=== PATIENT | female | born 1950 | race Caucasian/White ===

== ENCOUNTER → 2017-11-20 | Outpatient (CLI) | payer OTHER ==
[~2017-11-20] MED LIST: ALBU3IS INH; ALBU90OI; ALBU90OI6 INH; ALBU90OI61 INH; ATEN50 PO; ATOR40TA PO; BECL80OI INH; BENZ100A PO; CHOL10002 PO; COLE1; CRESTOR 40MG PO; CYCL10 PO; FLUSAL5005; FURO20 PO; FURO40 PO; GLIM2 PO; HYDACE5 PO; HYDCHL25 PO; IBUP600 PO; IPRAIS; LOSA50 PO; LOSARTAN POTASS50 MG PO; METF500; OLME20-12. PO; OSCAL; OXYACE5T PO; PAIN RELIEVER500 MG PO; PENVK500 PO; POTCHL20ER PO; SITA100T2 PO; TIOT18 IH; Veetids 500500 MG PO; XARELTO15 MG PO; XARELTO20 MG PO
[2017-11-20 13:55] LABS: Hematocrit 39.1 % (33.0-51.0); Hemoglobin 12.5 g/dL (11.5-16.0)
[2017-11-20 14:42] LABS: Albumin, Blood 3.8 g/dL (3.4-5.0); Anion Gap 8 mmol/L (6-16); Blood Urea Nitrogen 25 mg/dL (8-24); Bun/Creatinine Ratio 23.1 (12.0-20.0); CO2, Blood 26 mmol/L (21-32); Chloride, Blood 106 mmol/L (98-108); Creatinine, Blood 1.08 mg/dL (0.40-1.00); Glomerular Filtration Rate 53 (60-); Glucose, Blood 137 mg/dL (70-99); Phosphorus, Blood 2.8 mg/dL (2.5-4.9); Sodium, Blood 140 mmol/L (136-145)
[2017-11-20 14:44] LABS: Percent Saturation 15.6 % (15.0-50.0)
[2017-11-20 16:29] LABS: Creatinine, Urine Random 94.3 mg/dL (27.00-270.00)
[2017-11-21 08:43] LABS: IgA 132 mg/dL (71-397); IgG 777 mg/dL (758-1612); IgM 43 mg/dL (40-230)
[2017-11-21 12:57] LABS: Albumin 3.4 g/dL (3.3-4.8); Albumin 52.1 % (45.0-80.0); Monoclonal Protein 0.2 g/dL; Monoclonal Protien % 2.9 %; Protein, Total 6.6 g/dL (6.1-7.8)
== END | disposition home or self-care (01) ==
LOC: OLS 11:20
PROVIDERS: Internal Medicine
DX: N18.2 Chronic kidney disease, stage 2 (mild) (principal); D63.1 Anemia in chronic kidney disease; E55.9 Vitamin D deficiency, unspecified; N25.81 Secondary hyperparathyroidism of renal origin
CPT/HCPCS: 36415; 80069; 82306; 82570; 82728; 82784; 83540; 83550; 83970; 84156; 84165; 85014; 85018; 86334

== ENCOUNTER 2018-02-13 03:20 | Emergency (ER) | payer OTHER ==
[~2018-02-13] VITALS: Ht 165.1 cm; Wt 108.9 kg
[~2018-02-13 03:20] MED LIST changes: -ALBU3IS INH; -BENZ100A PO; -CHOL10002 PO; -LOSA50 PO; -POTCHL20ER PO; -XARELTO15 MG PO
[2018-02-13 03:53] LABS: BASOPHILS ABSOLUTE AUTO 0.05 K/mm3 (0.00-0.23); BASOPHILS PERCENT AUTO 1 % (0-2); EOSINOPHILS ABSOLUTE AUTO 0.19 K/mm3 (0.00-0.68); EOSINOPHILS PERCENT AUTO 2 % (0-6); Hemoglobin 12.6 g/dL (11.5-16.0); IMMATURE GRAN ABSOLUTE AUTO 0.02 K/mm3 (0.00-0.10); IMMATURE GRAN PERCENT AUTO 0 % (0-1); LYMPHOCYTES ABSOLUTE AUTO 3.46 K/mm3 (0.84-5.20); LYMPHOCYTES PERCENT AUTO 43 % (21-46); MONOCYTES ABSOLUTE AUTO 0.44 K/mm3 (0.16-1.47); MONOCYTES PERCENT AUTO 5 % (4-13); Mean Corpuscular HGB 30.6 pg (26.0-34.0); Mean Corpuscular HGB Conc 32.3 g/dL (31.5-36.5); Mean Corpuscular Volume 95 fL (80-100); Mean Platelet Volume 10.6 fL (9.1-12.4); NEUTROPHILS ABSOLUTE AUTO 3.97 K/mm3 (1.96-9.15); NEUTROPHILS PERCENT AUTO 49 % (41-73); Platelet Count 196 K/mm3 (150-400); RDW Coefficient Variation 13.2 % (11.7-14.2); RDW Standard Deviation 45.8 fL (35.1-46.3); Red Blood Cell Count 4.12 M/mm3 (3.80-5.20); White Blood Cell Count 8.13 K/mm3 (4.00-11.30)
[2018-02-13 04:13] LABS: Alanine Aminotransfer (ALT/SGP 16 U/L (12-78); Albumin, Blood 3.4 g/dL (3.4-5.0); Alk Phos 85 U/L (50-136); Anion Gap 7 mmol/L (6-16); Aspartate Aminotrans (AST/SGOT 13 U/L (12-37); Bilirubin, Total 0.7 mg/dL (0.1-1.0); Blood Urea Nitrogen 17 mg/dL (8-24); CO2, Blood 28 mmol/L (21-32); Calcium, Blood 8.8 mg/dL (8.5-10.1); Chloride, Blood 110 mmol/L (98-108); Creatinine, Blood 0.89 mg/dL (0.40-1.00); Globulin, Blood 3.5 g/dL (2.2-4.0); Glomerular Filtration Rate >60 (60-); Glucose, Blood 126 mg/dL (70-99); Potassium, Blood 3.7 mmol/L (3.5-5.5); Sodium, Blood 145 mmol/L (136-145); Total Protein, Blood 6.9 g/dL (6.4-8.2); Troponin I <0.015 ng/mL (0.000-0.040)
[2018-02-13 06:13] LABS: Source, Urine Clean Catch
[2018-02-13 06:15] LABS: Bilirubin, Urine Neg (Neg); Blood, Urine Neg (Neg); Glucose Qualitative, Urine Neg (Neg); Ketones, Urine Neg (Neg); Leukocyte Esterase, Urine Neg (Neg); Nitrite, Urine Neg (Neg); Protein, Urine Neg (Neg); Urobilinogen, Urine NORM (Normal)
[2018-02-13 06:43] LABS: Appearance, Urine Clear (Clear); Color, Urine Yellow (P-Yellow)
== END 2018-02-13 10:00 | disposition home or self-care (01) ==
LOC: ER 03:20
PROVIDERS: Emergency Medicine
DX: R10.33 Periumbilical pain (principal); I25.2 Old myocardial infarction; E11.9 Type 2 diabetes mellitus without complications; F17.200 Nicotine dependence, unspecified, uncomplicated; Z88.8 Allergy status to other drugs, medicaments and biological substances; Z88.1 Allergy status to other antibiotic agents; Z88.5 Allergy status to narcotic agent; Z79.899 Other long term (current) drug therapy; Z86.711 Personal history of pulmonary embolism
CPT/HCPCS: 36415; 74176; 80053; 81003; 83690; 84484; 85025; 93005; 93010; 96374; 96375; 99284; J2405; J3010

== ENCOUNTER 2018-07-25 12:13 | Inpatient (IN) | payer OTHER ==
[~2018-07-25] VITALS: Ht 165.1 cm; Wt 99.0 kg
[~2018-07-25 12:13] MED LIST changes: -ALBU3IS INH; -BENZ100A PO; -CHOL10002 PO; -LOSA50 PO; -POTCHL20ER PO; -XARELTO15 MG PO
[2018-07-25] MEDS ORDERED: ALBU3IS INH (12:52)
[2018-07-25] MEDS ORDERED: ATOR40TA PO (12:52)
[2018-07-25] MEDS ORDERED: SITA100T2 PO (12:53)
[2018-07-25] MEDS ORDERED: HYDCHL25 PO (12:53)
[2018-07-25] MEDS ORDERED: FURO20 PO (12:53)
[2018-07-25] MEDS ORDERED: LOSA50 PO (12:53)
[2018-07-25] MEDS ORDERED: POTCHL20ER PO (12:54)
[2018-07-25] MEDS ORDERED: ALBU90OI61 INH (12:54)
[2018-07-25] MEDS ORDERED: XARELTO20 MG PO (12:55)
[2018-07-25] MEDS ORDERED: CHOL10002 PO (12:55)
[2018-07-26 03:43] LABS: BASOPHILS ABSOLUTE AUTO 0.01 K/mm3 (0.00-0.23); BASOPHILS PERCENT AUTO 0 % (0-2); EOSINOPHILS PERCENT AUTO 0 % (0-6); Hematocrit 34.4 % (33.0-51.0); Hemoglobin 11.2 g/dL (11.5-16.0); IMMATURE GRAN ABSOLUTE AUTO 0.03 K/mm3 (0.00-0.10); IMMATURE GRAN PERCENT AUTO 1 % (0-1); LYMPHOCYTES ABSOLUTE AUTO 0.97 K/mm3 (0.84-5.20); LYMPHOCYTES PERCENT AUTO 17 % (21-46); MONOCYTES ABSOLUTE AUTO 0.15 K/mm3 (0.16-1.47); MONOCYTES PERCENT AUTO 3 % (4-13); Mean Corpuscular HGB 31.5 pg (26.0-34.0); Mean Corpuscular HGB Conc 32.6 g/dL (31.5-36.5); Mean Platelet Volume 11.2 fL (9.1-12.4); NEUTROPHILS ABSOLUTE AUTO 4.54 K/mm3 (1.96-9.15); NEUTROPHILS PERCENT AUTO 80 % (41-73); Platelet Count 113 K/mm3 (150-400); RDW Coefficient Variation 12.5 % (11.7-14.2); RDW Standard Deviation 44.6 fL (35.1-46.3); Red Blood Cell Count 3.55 M/mm3 (3.80-5.20)
[2018-07-26 03:45] LABS: Mean Corpuscular Volume 97 fL (80-100)
[2018-07-26 04:04] LABS: Anion Gap 9 mmol/L (6-16); Blood Urea Nitrogen 18 mg/dL (8-24); Bun/Creatinine Ratio 18.9 (12.0-20.0); CO2, Blood 23 mmol/L (21-32); CPK Creatine Kinase 37 U/L (26-193); Calcium, Blood 8.1 mg/dL (8.5-10.1); Chloride, Blood 110 mmol/L (98-108); Creatine Kinase MB 1.1 ng/mL (0.0-3.6); Creatinine, Blood 0.95 mg/dL (0.40-1.00); Glomerular Filtration Rate >60 (60-); Glucose, Blood 205 mg/dL (70-99); Potassium, Blood 4.1 mmol/L (3.5-5.5); Sodium, Blood 142 mmol/L (136-145); Troponin I <0.015 ng/mL (0.000-0.040)
[2018-07-26 08:35] LABS: CPK Creatine Kinase 38 U/L (26-193); Troponin I <0.015 ng/mL (0.000-0.040)
[2018-07-27 04:10] LABS: BASOPHILS ABSOLUTE AUTO 0.04 K/mm3 (0.00-0.23); BASOPHILS PERCENT AUTO 0 % (0-2); EOSINOPHILS ABSOLUTE AUTO 0.09 K/mm3 (0.00-0.68); EOSINOPHILS PERCENT AUTO 1 % (0-6); Hematocrit 33.4 % (33.0-51.0); Hemoglobin 10.5 g/dL (11.5-16.0); IMMATURE GRAN ABSOLUTE AUTO 0.04 K/mm3 (0.00-0.10); IMMATURE GRAN PERCENT AUTO 0 % (0-1); LYMPHOCYTES ABSOLUTE AUTO 3.26 K/mm3 (0.84-5.20); LYMPHOCYTES PERCENT AUTO 35 % (21-46); MONOCYTES ABSOLUTE AUTO 0.38 K/mm3 (0.16-1.47); MONOCYTES PERCENT AUTO 4 % (4-13); Mean Corpuscular HGB 31.5 pg (26.0-34.0); Mean Corpuscular HGB Conc 31.4 g/dL (31.5-36.5); Mean Platelet Volume 11.1 fL (9.1-12.4); NEUTROPHILS PERCENT AUTO 59 % (41-73); Platelet Count 115 K/mm3 (150-400); RDW Coefficient Variation 12.9 % (11.7-14.2); RDW Standard Deviation 47.4 fL (35.1-46.3); Red Blood Cell Count 3.33 M/mm3 (3.80-5.20); White Blood Cell Count 9.31 K/mm3 (4.00-11.30)
[2018-07-27 04:11] LABS: Mean Corpuscular Volume 100 fL (80-100)
[2018-07-27 04:27] LABS: Albumin, Blood 2.8 g/dL (3.4-5.0); Anion Gap 8 mmol/L (6-16); Blood Urea Nitrogen 23 mg/dL (8-24); Bun/Creatinine Ratio 18.5 (12.0-20.0); CO2, Blood 24 mmol/L (21-32); Calcium, Blood 8.2 mg/dL (8.5-10.1); Chloride, Blood 111 mmol/L (98-108); Creatinine, Blood 1.24 mg/dL (0.40-1.00); Glomerular Filtration Rate 45 (60-); Glucose, Blood 125 mg/dL (70-99); Phosphorus, Blood 4.4 mg/dL (2.5-4.9); Potassium, Blood 4.1 mmol/L (3.5-5.5); Sodium, Blood 143 mmol/L (136-145)
[2018-07-28 04:46] LABS: BASOPHILS ABSOLUTE AUTO 0.02 K/mm3 (0.00-0.23); BASOPHILS PERCENT AUTO 0 % (0-2); EOSINOPHILS ABSOLUTE AUTO 0.18 K/mm3 (0.00-0.68); EOSINOPHILS PERCENT AUTO 2 % (0-6); Hematocrit 34.8 % (33.0-51.0); IMMATURE GRAN ABSOLUTE AUTO 0.04 K/mm3 (0.00-0.10); IMMATURE GRAN PERCENT AUTO 1 % (0-1); LYMPHOCYTES ABSOLUTE AUTO 1.89 K/mm3 (0.84-5.20); LYMPHOCYTES PERCENT AUTO 25 % (21-46); MONOCYTES ABSOLUTE AUTO 0.48 K/mm3 (0.16-1.47); MONOCYTES PERCENT AUTO 6 % (4-13); Mean Corpuscular HGB 31.2 pg (26.0-34.0); Mean Corpuscular HGB Conc 31.6 g/dL (31.5-36.5); Mean Corpuscular Volume 99 fL (80-100); Mean Platelet Volume 10.8 fL (9.1-12.4); NEUTROPHILS PERCENT AUTO 66 % (41-73); Platelet Count 114 K/mm3 (150-400); RDW Coefficient Variation 12.8 % (11.7-14.2); Red Blood Cell Count 3.53 M/mm3 (3.80-5.20); White Blood Cell Count 7.61 K/mm3 (4.00-11.30)
[2018-07-28 05:04] LABS: Albumin, Blood 2.7 g/dL (3.4-5.0); Albumin/Globulin Ratio 0.9 (0.8-1.8); Bilirubin, Total 0.4 mg/dL (0.1-1.0); Bun/Creatinine Ratio 19.1 (12.0-20.0); Calcium, Blood 8.7 mg/dL (8.5-10.1); Creatinine, Blood 1.1 mg/dL (0.40-1.00); Globulin, Blood 2.9 g/dL (2.2-4.0); Potassium, Blood 4.3 mmol/L (3.5-5.5); Total Protein, Blood 5.6 g/dL (6.4-8.2)
[2018-07-29] MEDS ORDERED: BENZ100A PO (15:14)
[2018-07-29] MEDS ORDERED: XARELTO15 MG PO (15:15)
== END 2018-07-29 15:59 | disposition home or self-care (01) | DRG 175 ==
LOC: ER 12:13 → PCU 15:13 → MEDS 15:13 → PCU 15:53 → MEDS 07-27 13:59
PROVIDERS: Family Medicine; Internal Medicine
PROC: 3E0234Z Introduction of Serum, Toxoid and Vaccine into Muscle, Percutaneous Approach (ICD-10-PCS; principal; 2018-07-25)
DX: I26.99 Other pulmonary embolism without acute cor pulmonale (principal); J96.01 Acute respiratory failure with hypoxia; I50.31 Acute diastolic (congestive) heart failure; J44.1 Chronic obstructive pulmonary disease with (acute) exacerbation; I13.0 Hypertensive heart and chronic kidney disease with heart failure and stage 1 through stage 4 chronic kidney disease, or unspecified chronic kidney disease; I27.20 Pulmonary hypertension, unspecified; E11.22 Type 2 diabetes mellitus with diabetic chronic kidney disease; N18.3 Chronic kidney disease, stage 3 (moderate); E11.21 Type 2 diabetes mellitus with diabetic nephropathy; G47.33 Obstructive sleep apnea (adult) (pediatric); I48.0 Paroxysmal atrial fibrillation; E78.5 Hyperlipidemia, unspecified; M19.90 Unspecified osteoarthritis, unspecified site; F17.210 Nicotine dependence, cigarettes, uncomplicated; Z86.718 Personal history of other venous thrombosis and embolism; Z88.1 Allergy status to other antibiotic agents; Z88.5 Allergy status to narcotic agent; Z79.899 Other long term (current) drug therapy; I25.2 Old myocardial infarction; Z23 Encounter for immunization
CPT/HCPCS: 36415; 71046; 71260; 80048; 80053; 80069; 82550; 82553; 82947; 83880; 84484; 85025; 85730; 87070; 87205; 90686; 93005; 93010; 93306; 94640; 94667; 94760; 94761; 96361; 96374; 97161; 97530; 99285-25; 99406; A9270; G8978; G8979; G8980; J0696; J1644; J2405; J2930; J7030; J7050; Q9967

== ENCOUNTER → 2018-07-25 | Outpatient (CLI) | payer OTHER ==
[~2018-07-25] MED LIST changes: +ALBU3IS INH; +BENZ100A PO; +CHOL10002 PO; +LOSA50 PO; +POTCHL20ER PO; +XARELTO15 MG PO
[2018-07-25 11:35] LABS: BASOPHILS ABSOLUTE AUTO 0.04 K/mm3 (0.00-0.23); BASOPHILS PERCENT AUTO 1 % (0-2); EOSINOPHILS ABSOLUTE AUTO 0.05 K/mm3 (0.00-0.68); EOSINOPHILS PERCENT AUTO 1 % (0-6); Hematocrit 36.5 % (33.0-51.0); Hemoglobin 12.2 g/dL (11.5-16.0); IMMATURE GRAN ABSOLUTE AUTO 0.04 K/mm3 (0.00-0.10); IMMATURE GRAN PERCENT AUTO 1 % (0-1); LYMPHOCYTES ABSOLUTE AUTO 1.59 K/mm3 (0.84-5.20); LYMPHOCYTES PERCENT AUTO 20 % (21-46); MONOCYTES ABSOLUTE AUTO 0.35 K/mm3 (0.16-1.47); MONOCYTES PERCENT AUTO 4 % (4-13); Mean Corpuscular HGB 31.5 pg (26.0-34.0); Mean Corpuscular HGB Conc 33.4 g/dL (31.5-36.5); Mean Platelet Volume 10.9 fL (9.1-12.4); NEUTROPHILS ABSOLUTE AUTO 6.04 K/mm3 (1.96-9.15); NEUTROPHILS PERCENT AUTO 75 % (41-73); Platelet Count 125 K/mm3 (150-400); RDW Coefficient Variation 12.9 % (11.7-14.2); RDW Standard Deviation 44.2 fL (35.1-46.3); Red Blood Cell Count 3.87 M/mm3 (3.80-5.20); White Blood Cell Count 8.11 K/mm3 (4.00-11.30)
[2018-07-25 11:38] LABS: Mean Corpuscular Volume 94 fL (80-100)
[2018-07-25 11:40] LABS: Bun/Creatinine Ratio 13.9 (12.0-20.0); Calcium, Blood 9.1 mg/dL (8.5-10.1); Creatinine, Blood 1.22 mg/dL (0.40-1.00)
[2018-07-25 12:28] LABS: International Normalized Ratio 1.14; Prothrombin Time Results 11.7 Sec (9.7-11.5)
== END ==
LOC: LAB SHORT 11:25 → LAB EV 11:25
PROVIDERS: Emergency Medicine
DX: R07.9 Chest pain, unspecified (principal)
CPT/HCPCS: 80048; 85025; 85379; 85610; 85730

== ENCOUNTER 2019-02-16 10:55 | Day surgery (SDC) | payer OTHER ==
[~2019-02-16 10:55] MED LIST changes: +ALBU3IS INH; +BENZ100A PO; +CHOL10002 PO; +LOSA50 PO; +POTCHL20ER PO; +XARELTO15 MG PO
[2019-02-16 12:37] LABS: Performing Lab VERACYTE; Test Name FNA
== END 2019-02-16 22:40 | disposition home or self-care (01) ==
LOC: US 10:55
PROVIDERS: Nurse Practitioner Family
DX: E04.1 Nontoxic single thyroid nodule (principal)
CPT/HCPCS: 10005

== ENCOUNTER → 2020-01-13 | Outpatient (CLI) | payer OTHER ==
[2020-01-14 00:14] LABS: Campylobacter Sp Not Detected (NOT DETECT)
[2020-01-14 00:15] LABS: Adenovirus F 40/41 Not Detected (NOT DETECT); Astrovirus Not Detected (NOT DETECT); Cryptosporidium Not Detected (NOT DETECT); Cyclospora Cayetanensis Not Detected (NOT DETECT); E. Coli O157 Not Detected (NOT DETECT); Entamoeba Histolytica Not Detected (NOT DETECT); Enteroaggregative E. coli-EAEC Not Detected (NOT DETECT); Enteropathogenic E. coli-EPEC Not Detected (NOT DETECT); Enterotoxigenic E. coli-ETEC Not Detected (NOT DETECT); Giardia Lamblia Not Detected (NOT DETECT); Norovirus GI/GII Not Detected (NOT DETECT); Plesiomonas Shigelloides Not Detected (NOT DETECT); Rotavirus A Not Detected (NOT DETECT); Salmonella Sp Not Detected (NOT DETECT); Sapovirus Not Detected (NOT DETECT); Shiga Toxin-prod E. coli-STEC Not Detected (NOT DETECT); Shigella/Enteroin E. coli-EIEC Not Detected (NOT DETECT); Vibrio Cholerae Not Detected (NOT DETECT); Vibrio Sp Not Detected (NOT DETECT); Yersinia Enterocolitica Not Detected (NOT DETECT)
== END | disposition home or self-care (01) ==
LOC: LAB EV 09:33
PROVIDERS: Nurse Practitioner Family
DX: K52.9 Noninfective gastroenteritis and colitis, unspecified (principal)
CPT/HCPCS: 0097U; 87324

== ENCOUNTER 2020-02-21 12:01 | Inpatient (IN) | payer OTHER ==
[~2020-02-21] VITALS: Ht 165.1 cm; Wt 113.4 kg
[~2020-02-21 12:01] MED LIST changes: -CHOL10002 PO; -LOSA50 PO; -POTCHL20ER PO; -XARELTO15 MG PO
[2020-02-21 13:01] LABS: BASOPHILS ABSOLUTE AUTO 0.04 K/mm3 (0.00-0.23); BASOPHILS PERCENT AUTO 0 % (0-2); EOSINOPHILS PERCENT AUTO 0 % (0-6); Hematocrit 34.2 % (33.0-51.0); Hemoglobin 11.3 g/dL (11.5-16.0); IMMATURE GRAN ABSOLUTE AUTO 0.08 K/mm3 (0.00-0.10); IMMATURE GRAN PERCENT AUTO 1 % (0-1); LYMPHOCYTES ABSOLUTE AUTO 0.71 K/mm3 (0.84-5.20); LYMPHOCYTES PERCENT AUTO 6 % (21-46); MONOCYTES ABSOLUTE AUTO 0.84 K/mm3 (0.16-1.47); MONOCYTES PERCENT AUTO 7 % (4-13); Mean Corpuscular HGB 30.6 pg (26.0-34.0); Mean Corpuscular Volume 93 fL (80-100); Mean Platelet Volume 12.1 fL (9.1-12.4); NEUTROPHILS ABSOLUTE AUTO 10.47 K/mm3 (1.96-9.15); NEUTROPHILS PERCENT AUTO 86 % (41-73); Platelet Count 114 K/mm3 (150-400); RDW Coefficient Variation 13.2 % (11.7-14.2); Red Blood Cell Count 3.69 M/mm3 (3.80-5.20); White Blood Cell Count 12.14 K/mm3 (4.00-11.30)
[2020-02-21 13:19] LABS: Albumin, Blood 2.8 g/dL (3.4-5.0); Albumin/Globulin Ratio 0.8 (0.8-1.8); Bilirubin, Total 2.3 mg/dL (0.1-1.0); Bun/Creatinine Ratio 24.7 (12.0-20.0); Calcium, Blood 8.4 mg/dL (8.5-10.1); Creatinine, Blood 1.82 mg/dL (0.40-1.00); Globulin, Blood 3.4 g/dL (2.2-4.0); Total Protein, Blood 6.2 g/dL (6.4-8.2); Troponin I 0.243 ng/mL (0.000-0.040)
[2020-02-21] MEDS ORDERED: SITA100T2 PO (14:36)
[2020-02-21] MEDS ORDERED: LOSARTAN POTAS100 M1 PO (14:37)
[2020-02-21] MEDS ORDERED: VITAMIN D-32000 UNIT PO (14:37)
[2020-02-21] MEDS ORDERED: ALBU90OI INH (14:38)
[2020-02-21] MEDS ORDERED: FURO20 PO (14:39)
[2020-02-21] MEDS ORDERED: TOPROL XL25 MG PO (14:40)
[2020-02-21] MEDS ORDERED: XARELTO20 MG PO (14:40)
[2020-02-21] MEDS ORDERED: POTCHL20ER PO (14:41)
[2020-02-21] MEDS ORDERED: HYDCHL25 PO (14:41)
[2020-02-21] MEDS ORDERED: ATOR40TA PO (14:41)
--- NOTE | 2020-02-21 18:23 | NUR ---
PT ADMITTED/SHIFT SUMMARY PT ADMITTED AT 1645. PT IN STABLE CONDITION. VSS. BP LOW WITH SBP IN THE UPPER 90S. PT GIVEN 500CC BOLUS ORDERED. NS INFUSION STARTED. PT ORIENTED TO ROOM. CALL LIGHT IN REACH. PT STATES A LITTLE DISCOMFORT IN HER R CHEST AREA. PT STATES IT IS BETTER THAN EARLIER HOWEVER. NO CHANGES IN ADMISSION ASSESSMENT AT THIS TIME. WILL CONTINUE TO MONITOR.
[2020-02-21 22:25] LABS: Source, Urine Clean Catch
--- NOTE | 2020-02-21 22:26 | NUR ---
URINE SAMPLE COLLECTED AND SENT TO LAB.
[2020-02-21 22:27] LABS: Appearance, Urine Turbid (Clear); Blood, Urine 5+ (Neg); Color, Urine Amber (P-Yellow); Glucose Qualitative, Urine Neg (Neg); Ketones, Urine 1+ (Neg); Leukocyte Esterase, Urine 3+ (Neg); Nitrite, Urine Neg (Neg); Protein, Urine 3+ (Neg); Urobilinogen, Urine 2+ (Normal)
[2020-02-21 22:28] LABS: Bilirubin, Urine 1+ (Neg)
[2020-02-21 22:35] LABS: Bacteria Many /hpf; Red Blood Cells, Urine 0-2 /hpf (0-2); Squamous Epithelial Cells Few /hpf (Few); White Blood Cells, Urine TNTC /hpf (0-5)
[2020-02-22 01:18] LABS: BASOPHILS ABSOLUTE AUTO 0.03 K/mm3 (0.00-0.23); BASOPHILS PERCENT AUTO 0 % (0-2); EOSINOPHILS ABSOLUTE AUTO 0.04 K/mm3 (0.00-0.68); EOSINOPHILS PERCENT AUTO 0 % (0-6); Hematocrit 32.3 % (33.0-51.0); IMMATURE GRAN ABSOLUTE AUTO 0.07 K/mm3 (0.00-0.10); IMMATURE GRAN PERCENT AUTO 1 % (0-1); LYMPHOCYTES ABSOLUTE AUTO 1.01 K/mm3 (0.84-5.20); LYMPHOCYTES PERCENT AUTO 10 % (21-46); MONOCYTES PERCENT AUTO 10 % (4-13); Mean Corpuscular HGB 29.9 pg (26.0-34.0); Mean Corpuscular Volume 96 fL (80-100); Mean Platelet Volume 12.4 fL (9.1-12.4); NEUTROPHILS ABSOLUTE AUTO 7.88 K/mm3 (1.96-9.15); NEUTROPHILS PERCENT AUTO 79 % (41-73); Platelet Count 114 K/mm3 (150-400); RDW Coefficient Variation 13.3 % (11.7-14.2); RDW Standard Deviation 48.1 fL (35.1-46.3); Red Blood Cell Count 3.35 M/mm3 (3.80-5.20); White Blood Cell Count 10.03 K/mm3 (4.00-11.30)
[2020-02-22 01:35] LABS: Bun/Creatinine Ratio 18.6 (12.0-20.0); Calcium, Blood 7.8 mg/dL (8.5-10.1); Creatinine, Blood 2.8 mg/dL (0.40-1.00); Potassium, Blood 4.1 mmol/L (3.5-5.5)
--- NOTE | 2020-02-22 06:09 | NUR ---
INFECTION PREVENTION JUST CALLED AND SAID THAT THE PATIENT ONLY HAS A HISTORY OF C-DIFF AND IS NOT CURRENTLY HAVING LOOSE STOOLS SHE CAN BE REMOVED FROM HER ISOLATION PRECAUTIONS.
--- NOTE | 2020-02-22 07:19 | NUR ---
SHIFT SUMMARY PATIENT ALERT AND ORIENTED. IV PATENT AND INFUSING WITH NORMAL SALINE. TELE IN PLACE. BED IN LOWEST POSITION WITH WHEELS LOCKED. CALL LIGHT AND BELONGINGS WTIHIN REACH. REPORT GIVEN TO ONCOMING RN.
--- NOTE | 2020-02-22 08:13 | NUR ---
HOLD BP MEDS. SPOKE WITH DR. KAUR ABOUT PT BP OF 100/53. DR. KAUR ORDERED TO HOLD METOPERLOL AND LOSARTAN FOR SBP LESS THAN 105.
--- NOTE | 2020-02-22 12:55 | NUR ---
Upon receiving an admit referral for spiritual care, I visit patient. Patient is lying in bed and alert. Patient tells me about the fall that led to her hospitalization, about her medical history and her current plan of care. Patient shares about her family history, her present living arrangements (daughter and granddaughter live with her) and about her spiritual journey (grew up [employer], became Sabianist with second and recently has been attending [facility]). Patient tells me about her spiritual wilderness due to seperation from her methodist family. I listen empathically, naormalize patient's experience and provide pastoral counseling program leader, companionship and prayer. Patient responds well and shows signs of restored melecio. I will continue to remain available to patient and family.
--- NOTE | 2020-02-22 15:42 | NUR ---
HYPOTENSION /PT AFTER NOON BP LOW WITH A L ARM OF 94/48 AND R ARM OF 85/37. DR. KAUR CALLED & NOTIFIED. 1L NS BOLUS ORDERED.
--- NOTE | 2020-02-22 17:19 | NUR ---
SHIFT SUMMARY PT BP INCREASED TO 124/57 AFTER 1L FLUID BOLUS. PT VOIDING WELL AT THIS TIME. OTHER VITALS STABLE. PT HAD X-RAY OF RIBS COMPLETED THIS SHIFT. EVALUATED BY PT & OT THIS SHIFT. NO OTHER ACUTE CHANGES IN ASSESSMENT AT THIS TIME. WILL CONTINUE TO MONITOR UNTIL TURNOVER IS COMPLETE.
--- NOTE | 2020-02-23 02:48 | NUR ---
FUR SORTER SUMMARY PT A/O X4. SLEPT MOST OF THE NIGHT. PLEASANT AND COOPERATIVE. PT STATES PAIN TOLERABLE AND DENIES THE NEEDS OF PAIN MEDS. VITALS STABLE. COOPERATIVE WITH CARE. NO ACUTE CHANGES.
[2020-02-23 05:12] LABS: Bun/Creatinine Ratio 25.4 (12.0-20.0); Calcium, Blood 8.2 mg/dL (8.5-10.1); Creatinine, Blood 2.56 mg/dL (0.40-1.00)
--- NOTE | 2020-02-23 17:39 | NUR ---
SHIFT SUMMARY PT A&O X4. PT REPORTED PAIN OF 6/10 ON HER RIGHT RIBS WHICH IS A TOLERABLE LEVEL FOR HER. PILLOW PROVIDED FOR SPLINTING AND REPOSITIONING HELPS WITH PAIN ALSO. PHYSICAL THERAPY WORKED WITH PT TODAY AND SHE WAS ABLE TO WALK TO BATHROOM WITH WALKER. VSS. WILL CONTINUE TO MONITOR PT UNTIL GIVING REPORT TO NIGHT RN.
[2020-02-24 05:17] LABS: Bun/Creatinine Ratio 30.9 (12.0-20.0); Calcium, Blood 8.6 mg/dL (8.5-10.1); Creatinine, Blood 1.49 mg/dL (0.40-1.00); Potassium, Blood 3.9 mmol/L (3.5-5.5)
--- NOTE | 2020-02-24 06:04 | NUR ---
SHIFT SUMMARY PT IS A 69 Y/O FEMALE, ADMITTED FOR INCREASED WEAKNESS AND UTI. SHE IS A&O X 3, AND A 1PA TO THE BATHROOM. SHE WAS MEDICATED ONCE FOR R SIDE PAIN WITH PRN OXYCODONE. NO COMPLAINTS OF NAUSEA OR SOB. VITAL SIGNS STABLE. TELE SHOWED AFIB IN THE 70S. PT RECEIVED NS @ 50 ML/HR. NO OTHER ACUTE CHANGES IN PT CONDITION NOTED DURING THE NIGHT. WILL CONTINUE TO MONITOR AND TREAT PER EMAR UNTIL HAND OFF TO DAY SHIFT RN.
[2020-02-24] MEDS ORDERED: LIDOCAINE1 EAC1 TOP (16:04)
[2020-02-24] MEDS ORDERED: Tetracycline H500 MG PO (16:20)
[2020-02-24] MEDS ORDERED: TRAM50 PO (16:20)
--- NOTE | 2020-02-24 18:26 | NUR ---
D/C NOTE: EDUCATION AND DISCHARGE INSTRUCTIONS GONE OVER WITH PATIENT. PATIENT DENIES ANY FURTHER QUESTIONS. IV DC'D INTACT. HARD COPY OF PRESCRIPTION GIVEN TO PT IN DISCHARGE PACKET. PATIENT CONTACTED DAUGHTER FOR RIDE HOME. AWAITING ARRIVAL OF DAUGHTER. PT TO BE TAKEN TO DAUGHTER VIA W/C.
--- NOTE | 2020-02-24 18:45 | NUR ---
DISCHARGED AT 1845.
[2020-02-25] MEDS ORDERED: DOXY100 PO (09:39)
--- NOTE | 2020-02-25 09:41 | NUR ---
SHE DISCHARGED HOME YESTERDAY BUT CALLED AND SAID THE TETRACYCLINE WAS UNABLE TO BE FILLED DUE TO A RECALL. I SPOKE THIS MORNING WITH DR. NORIEGA. SHE ORDERED DOXYCYCLINE INSTEAD. I CALLED THAT INTO [facility] AND THEN CALLED ENDER AT HOME ABOUT THE CHANGE. SHE WILL PICK IT UP TODAY.
== END 2020-02-24 18:48 | disposition home health service (06) | DRG 641 ==
LOC: ER 12:01 → MEDS 15:29
PROVIDERS: Emergency Medicine; ADMIT Student in an Organized Health Care Education/Training Program
DX: E86.0 Dehydration (principal); N17.9 Acute kidney failure, unspecified; N39.0 Urinary tract infection, site not specified; I13.0 Hypertensive heart and chronic kidney disease with heart failure and stage 1 through stage 4 chronic kidney disease, or unspecified chronic kidney disease; I50.32 Chronic diastolic (congestive) heart failure; R79.89 Other specified abnormal findings of blood chemistry; R07.89 Other chest pain; R29.6 Repeated falls; B96.20 Unspecified Escherichia coli [E. coli] as the cause of diseases classified elsewhere; M25.551 Pain in right hip; J43.9 Emphysema, unspecified; G47.33 Obstructive sleep apnea (adult) (pediatric); E78.5 Hyperlipidemia, unspecified; M19.90 Unspecified osteoarthritis, unspecified site; I25.2 Old myocardial infarction; I48.91 Unspecified atrial fibrillation; E11.42 Type 2 diabetes mellitus with diabetic polyneuropathy; E11.22 Type 2 diabetes mellitus with diabetic chronic kidney disease; N18.3 Chronic kidney disease, stage 3 (moderate); M54.9 Dorsalgia, unspecified; G89.29 Other chronic pain; N39.3 Stress incontinence (female) (male); Z87.891 Personal history of nicotine dependence; Z88.8 Allergy status to other drugs, medicaments and biological substances; Z88.1 Allergy status to other antibiotic agents; Z88.5 Allergy status to narcotic agent; Z79.01 Long term (current) use of anticoagulants; Z79.84 Long term (current) use of oral hypoglycemic drugs; Z79.899 Other long term (current) drug therapy; Z86.718 Personal history of other venous thrombosis and embolism; Z86.711 Personal history of pulmonary embolism
CPT/HCPCS: 36415; 71046; 71101; 80048; 80053; 81001; 82947; 84484; 85025; 87077; 87086; 87186; 93005; 93010; 94760; 96361; 96374; 96375; 96376; 97110; 97116; 97163; 97166; 97530; 97535; 99285-25; A9270; A9270-GY; G0378; J0744; J2185; J2405; J3010; J7030; J7040

== ENCOUNTER 2022-12-23 15:49 | Inpatient (IN) | payer OTHER ==
[~2022-12-23] VITALS: Ht 162.6 cm; Wt 128.3 kg
[~2022-12-23 15:49] MED LIST changes: +ALBU90OI INH; +DOXY100 PO; +LIDOCAINE1 EAC1 TOP; +LOSARTAN POTAS100 M1 PO; +POTCHL20ER PO; +THERA-D2000 UNIT PO; +TOPROL XL25 MG PO; +TRAM50 PO; +Tetracycline H500 MG PO
[2022-12-23 16:35] LABS: BASOPHILS ABSOLUTE AUTO 0.05 K/mm3 (0.00-0.23); BASOPHILS PERCENT AUTO 1 % (0-2); EOSINOPHILS ABSOLUTE AUTO 0.15 K/mm3 (0.00-0.68); EOSINOPHILS PERCENT AUTO 2 % (0-6); Hematocrit 41.1 % (33.0-51.0); Hemoglobin 13.4 g/dL (11.5-16.0); IMMATURE GRAN ABSOLUTE AUTO 0.03 K/mm3 (0.00-0.10); IMMATURE GRAN PERCENT AUTO 1 % (0-1); LYMPHOCYTES ABSOLUTE AUTO 1.41 K/mm3 (0.84-5.20); LYMPHOCYTES PERCENT AUTO 22 % (21-46); MONOCYTES ABSOLUTE AUTO 0.43 K/mm3 (0.16-1.47); MONOCYTES PERCENT AUTO 7 % (4-13); Mean Corpuscular HGB 29.8 pg (26.0-34.0); Mean Corpuscular HGB Conc 32.6 g/dL (31.5-36.5); Mean Corpuscular Volume 92 fL (80-100); Mean Platelet Volume 12.4 fL (9.1-12.4); NEUTROPHILS ABSOLUTE AUTO 4.43 K/mm3 (1.96-9.15); NEUTROPHILS PERCENT AUTO 68 % (41-73); Platelet Count 146 K/mm3 (150-400); RDW Coefficient Variation 13.2 % (11.7-14.2); RDW Standard Deviation 44.3 fL (35.1-46.3); Red Blood Cell Count 4.49 M/mm3 (3.80-5.20)
[2022-12-23 16:48] LABS: Albumin, Blood 3.5 g/dL (3.4-5.0); Albumin/Globulin Ratio 1.1 (0.8-1.8); Bilirubin, Total 1.8 mg/dL (0.1-1.0); Bun/Creatinine Ratio 16.4 (12.0-20.0); Calcium, Blood 9.5 mg/dL (8.5-10.1); Creatinine, Blood 1.16 mg/dL (0.40-1.00); Globulin, Blood 3.3 g/dL (2.2-4.0); Potassium, Blood 4.1 mmol/L (3.5-5.5); Total Protein, Blood 6.8 g/dL (6.4-8.2)
[2022-12-23] MEDS ORDERED: GLIP5 PO (20:46)
[2022-12-23] MEDS ORDERED: OLMESARTAN MEDO40 MG PO (20:48)
[2022-12-23] MEDS ORDERED: TRADJENTA5 MG PO (20:50)
[2022-12-23] MEDS ORDERED: FUROSEMIDE20 MG PO (20:50)
--- NOTE | 2022-12-24 04:50 | NUR ---
SUMMARY: PATIENT ADMITTED OVERNIGHT FOR TIA. PATIENT ARRIVED AOX4 NO DEFICITS. PATIENT STARTED TO HAVE L FACIAL DROOP AND PROBLEMS WITH GARBLED SPEECH. NOTIFIED DR. DOE HE CAME TO ASSESS PATIENT SHORTLY AFTER BUT SYMPTOMS RESOLVED. THIS MORNING PATIENT HAD A L FACIAL DROOP AGAIN AND HAD PERFUSE COUGHING AFTER DRINKING THIN LIQUIDS TWICE. NOTIFIED DR. TANG, HE ORDERED SPEECH EVAL, NPO, ASPIRIN 325MG NOW AND 81 DAILY STARTING TOMORROW. PATIENT CURRENTLY RESTING IN BED. VSS.
[2022-12-24 05:04] LABS: BASOPHILS ABSOLUTE AUTO 0.04 K/mm3 (0.00-0.23); BASOPHILS PERCENT AUTO 1 % (0-2); EOSINOPHILS ABSOLUTE AUTO 0.28 K/mm3 (0.00-0.68); EOSINOPHILS PERCENT AUTO 4 % (0-6); Hematocrit 37.1 % (33.0-51.0); Hemoglobin 12.4 g/dL (11.5-16.0); IMMATURE GRAN ABSOLUTE AUTO 0.02 K/mm3 (0.00-0.10); IMMATURE GRAN PERCENT AUTO 0 % (0-1); LYMPHOCYTES ABSOLUTE AUTO 2.46 K/mm3 (0.84-5.20); LYMPHOCYTES PERCENT AUTO 33 % (21-46); MONOCYTES ABSOLUTE AUTO 0.52 K/mm3 (0.16-1.47); MONOCYTES PERCENT AUTO 7 % (4-13); Mean Corpuscular HGB 30.3 pg (26.0-34.0); Mean Corpuscular HGB Conc 33.4 g/dL (31.5-36.5); Mean Corpuscular Volume 91 fL (80-100); Mean Platelet Volume 11.4 fL (9.1-12.4); NEUTROPHILS ABSOLUTE AUTO 4.04 K/mm3 (1.96-9.15); NEUTROPHILS PERCENT AUTO 55 % (41-73); Platelet Count 147 K/mm3 (150-400); RDW Coefficient Variation 13.3 % (11.7-14.2); RDW Standard Deviation 43.9 fL (35.1-46.3); Red Blood Cell Count 4.09 M/mm3 (3.80-5.20); White Blood Cell Count 7.36 K/mm3 (4.00-11.30)
[2022-12-24 06:47] LABS: Alanine Aminotransfer (ALT/SGP 17 U/L (12-78); Albumin, Blood 3.1 g/dL (3.4-5.0); Albumin/Globulin Ratio 1.1 (0.8-1.8); Alk Phos 73 U/L (50-136); Anion Gap 5 mmol/L (6-16); Aspartate Aminotrans (AST/SGOT 10 U/L (12-37); Bilirubin, Total 1.4 mg/dL (0.1-1.0); Blood Urea Nitrogen 21 mg/dL (8-24); Bun/Creatinine Ratio 19.3 (12.0-20.0); CHOL/HDL RATIO 2.9; CO2, Blood 27 mmol/L (21-32); Chloride, Blood 112 mmol/L (98-108); Cholesterol 160 mg/dL (50-200); Creatinine, Blood 1.09 mg/dL (0.40-1.00); Globulin, Blood 2.9 g/dL (2.2-4.0); Glomerular Filtration Rate 53 (60-); Glucose, Blood 149 mg/dL (70-99); HDL Cholesterol 55 mg/dL (>39); LDL/HDL RATIO 1.6; Low Density Lipoprotein Chol 86 mg/dL (0-110); Potassium, Blood 4.4 mmol/L (3.5-5.5); Sodium, Blood 144 mmol/L (136-145); Triglycerides 94 mg/dL (30-160); Very Low Density Lipoprot Chol 19 mg/dL (6-32)
--- NOTE | 2022-12-24 07:01 | NUR ---
Patient HR low this am. She also had a 2.[address] Joiner. Patient had a seroquel last night that made her drowsy. MD stated to hold beta ly this am. Passed message onto day shift RN.
[2022-12-24 14:19] LABS: Source, Urine Clean Catch
[2022-12-24 14:53] LABS: Appearance, Urine Hazy (Clear); Bilirubin, Urine Neg (Neg); Blood, Urine Neg (Neg); Color, Urine Yellow (P-Yellow); Glucose Qualitative, Urine Neg (Neg); Ketones, Urine Neg (Neg); Leukocyte Esterase, Urine Neg (Neg); Nitrite, Urine Neg (Neg); Protein, Urine Neg (Neg); Urobilinogen, Urine NORM (Normal)
[2022-12-24 15:12] LABS: Amorphous Light (0-Heavy); Bacteria Many /hpf; Mucus Light (0-Heavy); Red Blood Cells, Urine 0-2 /hpf (0-2); Squamous Epithelial Cells Few /hpf (Few); White Blood Cells, Urine 0-2 /hpf (0-5)
--- NOTE | 2022-12-24 17:54 | NUR ---
SHIFT SUMMARY NO ACUTE CHANGES DURING SHIFT. PT ALERT AND ORIENTED,CALLS APPROPRIATELY. PT X 1 ASSIST WITH BELT AND FWW TO BEDSIDE COMMODE. SPEECH EVAL COMPLETED, PT/OT EVAL COMPLETED. PT STILL WITH SLURRED SPEACH AT TIMES AND SOME RESIDUAL FACIAL DROOP. MEDS WHOLE WITH APPLESAUCE PER SPEECH. WILL CONTINUE TO MONITOR, CALL LIGHT WITHIN REACH.
--- NOTE | 2022-12-25 05:31 | NUR ---
SHIFT SUMMARY PT A&OX 4 WITH CONFUSION AT TIMES, PIPER AT BEDSIDE AND ASSISTING WITH PT'S NEEDS, PT ON LEACHER- PT O2 INCREASED FROM 1.5L TO 3L D/T SATS NOT WNL- PT USES CALL LIGHT APPROPRIATE, PT SELF TURNS, ROUNDING PER PROTOCOL, BED LOW POSITION
--- NOTE | 2022-12-25 06:10 | NUR ---
SHIFT SUMMARY PT A&O X 4- PT CONTINUES TO HAVE SLURRED SPEECH- PT LETHARGIC AND REPORTS FEELING SLEEPY- PT TRANSFERRED TO BSC WITH 2 PERSON ASSIST- PT HAS TO BE CUED MULTIPLE TIMES WHILE BEING ASSISTED- MEDICATED FOR HEADACHE X 1 T/O NIGHT- PT CALLS APPROPRIATELY, CALL LIGHT WITHIN REACH, PT REPOSITIONED AT TIMES TO ASSIST WITH LAYING ON HER SIDES- BED LOW POSITION, ROUNDING DONE PER PROTOCOL
[2022-12-25 06:41] LABS: BASOPHILS ABSOLUTE AUTO 0.05 K/mm3 (0.00-0.23); BASOPHILS PERCENT AUTO 1 % (0-2); EOSINOPHILS ABSOLUTE AUTO 0.24 K/mm3 (0.00-0.68); EOSINOPHILS PERCENT AUTO 3 % (0-6); Hematocrit 38.1 % (33.0-51.0); Hemoglobin 12.6 g/dL (11.5-16.0); IMMATURE GRAN ABSOLUTE AUTO 0.02 K/mm3 (0.00-0.10); IMMATURE GRAN PERCENT AUTO 0 % (0-1); LYMPHOCYTES ABSOLUTE AUTO 1.67 K/mm3 (0.84-5.20); LYMPHOCYTES PERCENT AUTO 24 % (21-46); MONOCYTES ABSOLUTE AUTO 0.59 K/mm3 (0.16-1.47); MONOCYTES PERCENT AUTO 9 % (4-13); Mean Corpuscular HGB 30.1 pg (26.0-34.0); Mean Corpuscular HGB Conc 33.1 g/dL (31.5-36.5); Mean Corpuscular Volume 91 fL (80-100); Mean Platelet Volume 10.7 fL (9.1-12.4); NEUTROPHILS ABSOLUTE AUTO 4.39 K/mm3 (1.96-9.15); NEUTROPHILS PERCENT AUTO 63 % (41-73); Platelet Count 159 K/mm3 (150-400); RDW Coefficient Variation 13.2 % (11.7-14.2); RDW Standard Deviation 44.1 fL (35.1-46.3); Red Blood Cell Count 4.18 M/mm3 (3.80-5.20); White Blood Cell Count 6.96 K/mm3 (4.00-11.30)
[2022-12-25 06:57] LABS: Bun/Creatinine Ratio 17.4 (12.0-20.0); Creatinine, Blood 1.09 mg/dL (0.40-1.00); Potassium, Blood 4.4 mmol/L (3.5-5.5)
--- NOTE | 2022-12-25 19:45 | NUR ---
END OF SHIFT SUMMARY: PATIENT DENIED PAIN OR DISCOMFORT THROUGHOUT THE SHIFT. PATIENT IS ALERT AND ORIENTED, ABLE TO FOLLOW COMMANDS, AND ANSWER QUESTIONS APPROPRIATELY. AT TIMES THERE IS A DISCREPENCY OR CONFUSION WITH DETAILS RELAYED TO STAFF. PATIENT'S DAUGHTER REPORTS THAT THIS HAS BEEN ONGOING. NO LEFT SIDED DROOP NOTED TODAY. PATIENT HAS IMPROVED SPEECH AND WAS ADVANCED ON HER DIET. STRENGTH WAS EQUAL ACROSS EXTREMITIES. PATIENT UP OUT OF BED TODAY. PATIENT SUCCESSFULLY COMPLETED MRI THIS AFTERNOON. DAUGHTER REPORTS CONCERNS ABOUT THE PATIENT'S MENTATION AND IS REQUESTING A COGNITIVE EXAM TOMORROW, SUCH A MINI MENTAL EXAM. SHE IS ALSO HOPING TO GET AN UPDATE FROM THE HOSPITALIST. CONTACT INFO: BAKARI [phone]
--- NOTE | 2022-12-26 05:03 | NUR ---
PT MORE ALERT AND MOBILE THAN PREVIOUS NOC SHIFT, CALLS FOR NEEDS, REPOSITIONED Q 2HRS. NO C/O PAIN
[2022-12-26 05:40] LABS: BASOPHILS ABSOLUTE AUTO 0.05 K/mm3 (0.00-0.23); BASOPHILS PERCENT AUTO 1 % (0-2); EOSINOPHILS ABSOLUTE AUTO 0.26 K/mm3 (0.00-0.68); EOSINOPHILS PERCENT AUTO 4 % (0-6); Hematocrit 36.2 % (33.0-51.0); IMMATURE GRAN ABSOLUTE AUTO 0.03 K/mm3 (0.00-0.10); IMMATURE GRAN PERCENT AUTO 1 % (0-1); LYMPHOCYTES ABSOLUTE AUTO 1.51 K/mm3 (0.84-5.20); LYMPHOCYTES PERCENT AUTO 24 % (21-46); MONOCYTES ABSOLUTE AUTO 0.57 K/mm3 (0.16-1.47); MONOCYTES PERCENT AUTO 9 % (4-13); Mean Corpuscular HGB 30.5 pg (26.0-34.0); Mean Corpuscular HGB Conc 33.1 g/dL (31.5-36.5); Mean Corpuscular Volume 92 fL (80-100); Mean Platelet Volume 11.9 fL (9.1-12.4); NEUTROPHILS PERCENT AUTO 62 % (41-73); Platelet Count 161 K/mm3 (150-400); RDW Coefficient Variation 13.2 % (11.7-14.2); RDW Standard Deviation 45.2 fL (35.1-46.3); Red Blood Cell Count 3.93 M/mm3 (3.80-5.20); White Blood Cell Count 6.42 K/mm3 (4.00-11.30)
[2022-12-26 13:51] LABS: Source, Urine Straight Cath
[2022-12-26 14:24] LABS: Appearance, Urine Clear (Clear); Blood, Urine Neg (Neg); Color, Urine Amber (P-Yellow); Glucose Qualitative, Urine Neg (Neg); Ketones, Urine 1+ (Neg); Leukocyte Esterase, Urine 1+ (Neg); Nitrite, Urine Neg (Neg); Protein, Urine 2+ (Neg); Specific Gravity, Urine 1.025 (1.003-1.022); Urobilinogen, Urine 1+ (Normal)
[2022-12-26 14:44] LABS: Bilirubin, Urine 1+ (Neg)
[2022-12-26 14:53] LABS: Bacteria Many /hpf; Hyaline Casts 50-100 /lpf (0-2); Renal Epithelial Rare /hpf (0-Rare)
[2022-12-26 14:54] LABS: Red Blood Cells, Urine 0-2 /hpf (0-2)
[2022-12-26 14:55] LABS: Squamous Epithelial Cells Many /hpf (Few); Transitional Epithelial Cells Rare /hpf (0-Rare)
[2022-12-26 14:56] LABS: Mucus Light (0-Heavy)
[2022-12-26 14:57] LABS: Amorphous Light (0-Heavy)
[2022-12-26 17:12] LABS: Anion Gap 5 mmol/L (6-16); Blood Urea Nitrogen 21 mg/dL (8-24); Bun/Creatinine Ratio 16.9 (12.0-20.0); CHOL/HDL RATIO 3.3; CO2, Blood 26 mmol/L (21-32); Calcium, Blood 8.8 mg/dL (8.5-10.1); Chloride, Blood 111 mmol/L (98-108); Cholesterol 149 mg/dL (50-200); Creatinine, Blood 1.24 mg/dL (0.40-1.00); Glomerular Filtration Rate 46 (60-); Glucose, Blood 146 mg/dL (70-99); HDL Cholesterol 45 mg/dL (>39); LDL/HDL RATIO 1.9; Low Density Lipoprotein Chol 85 mg/dL (0-110); Potassium, Blood 4.3 mmol/L (3.5-5.5); Sodium, Blood 142 mmol/L (136-145); Triglycerides 95 mg/dL (30-160); Very Low Density Lipoprot Chol 19 mg/dL (6-32)
--- NOTE | 2022-12-26 18:49 | NUR ---
SHIFT SUMMARY: NO ACUTE EVENTS. NO EVENTS ON TELEMETRY, AFIB 60-70'S. ONLY SLIGHT FACIAL DROOP RESIDUAL NOTED. REPEAT URINE SAMPLE VIA STRAIGHT CATH SENT TO LAB. NO INSULIN COVERAGE NEEDED. GETTING UP TO CHAIR AND BR WITH ASSISTANCE. C/O PAIN IN BILATERLA KNEES; MEDICATED PER EMAR.
[2022-12-27 05:04] LABS: BASOPHILS ABSOLUTE AUTO 0.04 K/mm3 (0.00-0.23); BASOPHILS PERCENT AUTO 1 % (0-2); EOSINOPHILS PERCENT AUTO 6 % (0-6); IMMATURE GRAN ABSOLUTE AUTO 0.03 K/mm3 (0.00-0.10); IMMATURE GRAN PERCENT AUTO 0 % (0-1); LYMPHOCYTES ABSOLUTE AUTO 1.44 K/mm3 (0.84-5.20); LYMPHOCYTES PERCENT AUTO 21 % (21-46); MONOCYTES ABSOLUTE AUTO 0.55 K/mm3 (0.16-1.47); MONOCYTES PERCENT AUTO 8 % (4-13); Mean Corpuscular HGB 30.1 pg (26.0-34.0); Mean Corpuscular HGB Conc 32.4 g/dL (31.5-36.5); Mean Corpuscular Volume 93 fL (80-100); Mean Platelet Volume 11.3 fL (9.1-12.4); NEUTROPHILS ABSOLUTE AUTO 4.31 K/mm3 (1.96-9.15); NEUTROPHILS PERCENT AUTO 64 % (41-73); Platelet Count 155 K/mm3 (150-400); RDW Coefficient Variation 13.2 % (11.7-14.2); RDW Standard Deviation 45.1 fL (35.1-46.3); Red Blood Cell Count 3.99 M/mm3 (3.80-5.20); White Blood Cell Count 6.77 K/mm3 (4.00-11.30)
--- NOTE | 2022-12-27 05:23 | NUR ---
SHIFT SUMMARY PT SITTING UP IN BED DURING BEDSIDE ROUNDS- PT A&O X4 WITH MOMENTS OF CONFUSION- PT WORE CPAP FOR A FEW HOURS T/O NIGHT- PT REPORTED THE MASK WAS CAUSING HER TO HAVE A HEADACHE- REPOSTIONED THE MASK A COUPLE TIMES - PT REMOVED IN THE NIGHT- PT SATS DOWN TO 82-84%- WOKE UP PT AND HAD HER DO DEEP BREATHING EXERISES- PT TOLERATED WILL, BED LOW POSITION, CALL LIGHT WITHIN REACH, BED ALARM IN PLACE
[2022-12-27 05:30] LABS: Bun/Creatinine Ratio 19.4 (12.0-20.0); Calcium, Blood 9.1 mg/dL (8.5-10.1); Creatinine, Blood 1.24 mg/dL (0.40-1.00); Potassium, Blood 4.2 mmol/L (3.5-5.5)
[2022-12-27 12:02] LABS: Influenza A, PCR NEGATIVE (NEGATIVE); Influenza B, PCR NEGATIVE (NEGATIVE); Resp Syncytial Virus, PCR NEGATIVE (NEGATIVE); SARS-Cov-2 (COVID-19) PCR, MMC NEGATIVE (NEGATIVE)
[2022-12-27] MEDS ORDERED: ASPI81CH PO (13:09)
--- NOTE | 2022-12-27 17:36 | NUR ---
PATIENT DISCHARGED TO [facility] VIA W/C. TELEPHONE REPORT GIVEN TO [employer] CHEMISTRY TEACHER. IV SALINE LOCK AND TELEMETRY REMOVED WITHOUT INCIDENT. PT DRESSED IN OWN CLOTHING PRIOR TO DEPARTURE. OFF UNIT AT 1630. NO PERSONAL BELONGINGS FOUND LEFT BEHIND IN ROOM.
== END 2022-12-27 17:00 | DRG 65 ==
LOC: ER 15:49 → MEDS 15:50
PROVIDERS: Internal Medicine; Student in an Organized Health Care Education/Training Program; ADMIT Internal Medicine
DX: I63.511 Cerebral infarction due to unspecified occlusion or stenosis of right middle cerebral artery (principal); I13.0 Hypertensive heart and chronic kidney disease with heart failure and stage 1 through stage 4 chronic kidney disease, or unspecified chronic kidney disease; I50.32 Chronic diastolic (congestive) heart failure; N39.0 Urinary tract infection, site not specified; Z20.822 Contact with and (suspected) exposure to COVID-19; E11.40 Type 2 diabetes mellitus with diabetic neuropathy, unspecified; R47.01 Aphasia; I48.91 Unspecified atrial fibrillation; N18.30 Chronic kidney disease, stage 3 unspecified; E11.22 Type 2 diabetes mellitus with diabetic chronic kidney disease; K31.89 Other diseases of stomach and duodenum; J44.9 Chronic obstructive pulmonary disease, unspecified; I49.5 Sick sinus syndrome; E66.9 Obesity, unspecified; G47.33 Obstructive sleep apnea (adult) (pediatric); E78.5 Hyperlipidemia, unspecified; F17.200 Nicotine dependence, unspecified, uncomplicated; R29.810 Facial weakness; R32 Unspecified urinary incontinence; M19.90 Unspecified osteoarthritis, unspecified site; Z68.37 Body mass index [BMI] 37.0-37.9, adult; I25.2 Old myocardial infarction; Z86.718 Personal history of other venous thrombosis and embolism; Z86.711 Personal history of pulmonary embolism; Z90.89 Acquired absence of other organs; Z90.710 Acquired absence of both cervix and uterus; Z98.890 Other specified postprocedural states; Z79.01 Long term (current) use of anticoagulants; Z79.2 Long term (current) use of antibiotics; Z79.899 Other long term (current) drug therapy
CPT/HCPCS: 0241U; 36415; 70450; 70551; 80048; 80053; 80061; 81001; 82947; 85025; 87086; 90686; 92526; 92610; 93005; 93010; 93306; 93880; 94660; 94760; 94762; 96374; 97110; 97116; 97162; 97166; 97530; 97535; 99285-25; A9270; G0008; G0378; J0696; J1815

== ENCOUNTER 2023-01-13 14:20 | Emergency (ER) | payer OTHER ==
[~2023-01-13] VITALS: Ht 162.6 cm; Wt 77.1 kg
[~2023-01-13 14:20] MED LIST changes: +ASPI81CH PO; +FUROSEMIDE20 MG PO; +GLIP5 PO; +OLMESARTAN MEDO40 MG PO; +TRADJENTA5 MG PO
[2023-01-13 14:47] LABS: BASOPHILS ABSOLUTE AUTO 0.09 K/mm3 (0.00-0.23); BASOPHILS PERCENT AUTO 1 % (0-2); EOSINOPHILS ABSOLUTE AUTO 0.07 K/mm3 (0.00-0.68); EOSINOPHILS PERCENT AUTO 1 % (0-6); Hematocrit 41.1 % (33.0-51.0); Hemoglobin 13.6 g/dL (11.5-16.0); IMMATURE GRAN ABSOLUTE AUTO 0.04 K/mm3 (0.00-0.10); IMMATURE GRAN PERCENT AUTO 0 % (0-1); LYMPHOCYTES ABSOLUTE AUTO 1.87 K/mm3 (0.84-5.20); LYMPHOCYTES PERCENT AUTO 20 % (21-46); MONOCYTES ABSOLUTE AUTO 0.57 K/mm3 (0.16-1.47); MONOCYTES PERCENT AUTO 6 % (4-13); Mean Corpuscular HGB 30.4 pg (26.0-34.0); Mean Corpuscular HGB Conc 33.1 g/dL (31.5-36.5); Mean Corpuscular Volume 92 fL (80-100); Mean Platelet Volume 12.2 fL (9.1-12.4); NEUTROPHILS ABSOLUTE AUTO 6.96 K/mm3 (1.96-9.15); NEUTROPHILS PERCENT AUTO 73 % (41-73); Platelet Count 152 K/mm3 (150-400); RDW Coefficient Variation 13.2 % (11.7-14.2); RDW Standard Deviation 44.4 fL (35.1-46.3); Red Blood Cell Count 4.47 M/mm3 (3.80-5.20)
[2023-01-13 15:08] LABS: Albumin, Blood 3.7 g/dL (3.4-5.0); Albumin/Globulin Ratio 1.2 (0.8-1.8); Bilirubin, Total 0.9 mg/dL (0.1-1.0); Bun/Creatinine Ratio 21.8 (12.0-20.0); Calcium, Blood 9.3 mg/dL (8.5-10.1); Creatinine, Blood 1.74 mg/dL (0.40-1.00); Potassium, Blood 4.7 mmol/L (3.5-5.5); Total Protein, Blood 6.7 g/dL (6.4-8.2)
[2023-01-13 15:40] LABS: Influenza A, PCR NEGATIVE (NEGATIVE); Influenza B, PCR NEGATIVE (NEGATIVE); Resp Syncytial Virus, PCR NEGATIVE (NEGATIVE); SARS-Cov-2 (COVID-19) PCR, MMC NEGATIVE (NEGATIVE)
[2023-01-13] MEDS ORDERED: Loperamide2 MG PO (17:57)
== END 2023-01-13 18:19 | disposition home or self-care (01) ==
LOC: ER 14:20
PROVIDERS: Family Medicine
DX: R19.7 Diarrhea, unspecified (principal); I48.91 Unspecified atrial fibrillation; Z87.891 Personal history of nicotine dependence; Z79.899 Other long term (current) drug therapy; Z79.01 Long term (current) use of anticoagulants; Z79.84 Long term (current) use of oral hypoglycemic drugs; Z79.82 Long term (current) use of aspirin; E11.9 Type 2 diabetes mellitus without complications; Z20.822 Contact with and (suspected) exposure to COVID-19
CPT/HCPCS: 0241U; 80053; 85025; J7030

== ENCOUNTER 2023-02-20 18:31 | Emergency (ER) | payer OTHER ==
[~2023-02-20] VITALS: Ht 167.6 cm; Wt 113.4 kg
[~2023-02-20 18:31] MED LIST changes: +Loperamide2 MG PO
[2023-02-20 19:00] VITALS: BP 106/69
[2023-02-20 19:41] LABS: BASOPHILS ABSOLUTE AUTO 0.04 K/mm3 (0.00-0.23); BASOPHILS PERCENT AUTO 1 % (0-2); EOSINOPHILS PERCENT AUTO 0 % (0-6); Hematocrit 38.3 % (33.0-51.0); Hemoglobin 12.7 g/dL (11.5-16.0); IMMATURE GRAN ABSOLUTE AUTO 0.05 K/mm3 (0.00-0.10); IMMATURE GRAN PERCENT AUTO 1 % (0-1); LYMPHOCYTES ABSOLUTE AUTO 0.58 K/mm3 (0.84-5.20); LYMPHOCYTES PERCENT AUTO 9 % (21-46); MONOCYTES ABSOLUTE AUTO 0.56 K/mm3 (0.16-1.47); MONOCYTES PERCENT AUTO 9 % (4-13); Mean Corpuscular HGB Conc 33.2 g/dL (31.5-36.5); Mean Corpuscular Volume 91 fL (80-100); NEUTROPHILS ABSOLUTE AUTO 4.98 K/mm3 (1.96-9.15); NEUTROPHILS PERCENT AUTO 80 % (41-73); Platelet Count 111 K/mm3 (150-400); RDW Coefficient Variation 13.6 % (11.7-14.2); RDW Standard Deviation 45.7 fL (35.1-46.3); Red Blood Cell Count 4.23 M/mm3 (3.80-5.20); White Blood Cell Count 6.21 K/mm3 (4.00-11.30)
[2023-02-20 19:58] LABS: Bun/Creatinine Ratio 19.1 (12.0-20.0); Calcium, Blood 9.5 mg/dL (8.5-10.1); Creatinine, Blood 2.3 mg/dL (0.40-1.00); Potassium, Blood 4.5 mmol/L (3.5-5.5)
== END 2023-02-20 23:52 | disposition home or self-care (01) ==
LOC: ER 18:31
PROVIDERS: Emergency Medicine
DX: S70.02XA Contusion of left hip, initial encounter (principal); M25.562 Pain in left knee; W18.30XA Fall on same level, unspecified, initial encounter; Z88.8 Allergy status to other drugs, medicaments and biological substances; Z79.899 Other long term (current) drug therapy; Z79.82 Long term (current) use of aspirin; I25.2 Old myocardial infarction; E11.22 Type 2 diabetes mellitus with diabetic chronic kidney disease; I12.9 Hypertensive chronic kidney disease with stage 1 through stage 4 chronic kidney disease, or unspecified chronic kidney disease; N18.30 Chronic kidney disease, stage 3 unspecified; J44.9 Chronic obstructive pulmonary disease, unspecified; G47.33 Obstructive sleep apnea (adult) (pediatric); M19.90 Unspecified osteoarthritis, unspecified site; F17.200 Nicotine dependence, unspecified, uncomplicated
CPT/HCPCS: 36415; 73502; 73562-LT; 80048; 84484; 85025; 93005; 93010; 99284-25

== ENCOUNTER 2023-09-15 15:38 | Inpatient (IN) | payer OTHER ==
[~2023-09-15] VITALS: Ht 162.6 cm; Wt 113.6 kg
[2023-09-15 16:40] LABS: BASOPHILS ABSOLUTE AUTO 0.05 K/mm3 (0.00-0.23); BASOPHILS PERCENT AUTO 1 % (0-2); EOSINOPHILS ABSOLUTE AUTO 0.09 K/mm3 (0.00-0.68); EOSINOPHILS PERCENT AUTO 1 % (0-6); Hematocrit 38.4 % (33.0-51.0); Hemoglobin 12.5 g/dL (11.5-16.0); IMMATURE GRAN ABSOLUTE AUTO 0.03 K/mm3 (0.00-0.10); IMMATURE GRAN PERCENT AUTO 1 % (0-1); LYMPHOCYTES ABSOLUTE AUTO 1.27 K/mm3 (0.84-5.20); LYMPHOCYTES PERCENT AUTO 20 % (21-46); MONOCYTES ABSOLUTE AUTO 0.53 K/mm3 (0.16-1.47); MONOCYTES PERCENT AUTO 8 % (4-13); Mean Corpuscular HGB 30.6 pg (26.0-34.0); Mean Corpuscular HGB Conc 32.6 g/dL (31.5-36.5); Mean Corpuscular Volume 94 fL (80-100); Mean Platelet Volume 11.5 fL (9.1-12.4); NEUTROPHILS ABSOLUTE AUTO 4.48 K/mm3 (1.96-9.15); NEUTROPHILS PERCENT AUTO 69 % (41-73); Platelet Count 182 K/mm3 (150-400); RDW Coefficient Variation 13.7 % (11.7-14.2); RDW Standard Deviation 46.5 fL (35.1-46.3); Red Blood Cell Count 4.08 M/mm3 (3.80-5.20); White Blood Cell Count 6.45 K/mm3 (4.00-11.30)
[2023-09-15 16:47] LABS: Albumin, Blood 3.4 g/dL (3.4-5.0); Bilirubin, Total 0.8 mg/dL (0.1-1.0); Bun/Creatinine Ratio 18.2 (12.0-20.0); Calcium, Blood 9.1 mg/dL (8.5-10.1); Creatinine, Blood 1.43 mg/dL (0.40-1.00); Globulin, Blood 3.3 g/dL (2.2-4.0); Potassium, Blood 4.1 mmol/L (3.5-5.5); Total Protein, Blood 6.7 g/dL (6.4-8.2)
[2023-09-15 16:59] LABS: International Normalized Ratio 1.13; Prothrombin Time Results 11.8 Sec (9.7-11.5)
[2023-09-15 20:31] VITALS: BP 177/82
--- NOTE | 2023-09-16 04:29 | NUR ---
SHIFT SUMMARY ADMITTED FOR TIA. FULL CODE. CONTACT PRECAUTIONS FOR ESBL IN URINE. TELEMETRY: AFIB @ 61 BPM. SHE IS ON XARELTO BUT STRUGGLES TO PROCURE IT DUE TO INSURANCE COMPLICATIONS. PLAN IS TO RESUME XARELTO AND ASPIRIN. HER SPEECH IS GARBLED SINCE SYMPTOM ONSET. SHE IS A&O X3-4. ADA DIET. ON RA.
[2023-09-16 05:31] LABS: Bun/Creatinine Ratio 22.5 (12.0-20.0); Calcium, Blood 8.9 mg/dL (8.5-10.1); Creatinine, Blood 1.2 mg/dL (0.40-1.00); Potassium, Blood 3.8 mmol/L (3.5-5.5)
[2023-09-16 07:42] VITALS: BP 167/73
[2023-09-16 16:04] VITALS: BP 169/77
--- NOTE | 2023-09-16 16:56 | NUR ---
SHIFT SUMMARY PATIENT ALERT AND INTERACTIVE. SPEECH SLOW AT TIMES AND OCCASIONAL WORD SALAD. PATIENT AWARE OF WHEN SHE SAYS THE WRONG WORD AND AWARE OF WHEN SHE IS SLURRING HER WORDS. PATIENT HAS GENERALIZED WEAKNESS. PATIENT STATES THAT IT IS ABOUT HER NORMAL BECAUSE OF BAD KNEES AND ARTHRITIS. PATIENT USES A CANE AT HOME. PATIENT NEEDING ASSISTANCE WITH AMBULATING AND TRANSFERING FOR SAFETY. PATIENT UP TO COMMODE FREQUENTLY. WITH 1 PERSON ASSIST. EDUCATION PROVIDED RELATED TO AMBULATION SAFETY. PATIENT TO HAVE MRI LATER TODAY. SCREENING FORM DONE WITH PATIENT.
[2023-09-16 20:16] VITALS: BP 140/75
[2023-09-17 02:33] VITALS: BP 153/78
--- NOTE | 2023-09-17 04:30 | NUR ---
SHIFT SUMMARY ADMITTED FOR TIA. FULL CODE. EXPRESSIVE APHASIA AND APRAXIA NOTED. WE HAVE PUT HER BACK ON XARELTO AND ASPIRIN, SHE HAD BEEN OFF OF THOSE PRESCRIPTIONS FOR TWO MONTHS APPROXIMATELY. MRI DISCOVERED MULTIPLE TINY ACUTE CVA'S. TELEMETRY: AFIB @ 60 BPM. HER SPEECH IS CLEARING UP. SHE IS NOW AMBULATING TO THE BATHROOM WITH A FWW. I AM NOTICING HER DIFFICULTY WITH FINE MOTOR MOVEMENTS (RIGHT HAND). SHE IS FORGETFUL. ON RA. HX OF A CVA 3 MONTHS AGO, SC, AFIB, PE'S. SHE USES A CANE TO WALK AT BASELINE. SHE LIVES WITH HER DAUGHTER AND GRANDDAUGHTER.
[2023-09-17 07:48] VITALS: BP 155/66
--- NOTE | 2023-09-17 11:13 | NUR ---
Upon receiving a referral for spiritual care, I visited the patient. She tells me about her medical issues, her family unit complications, her spiritual journey and her yrs of homelessness. She attends [facility] and tells me about the positive experiences there. I provide therapeutic listening, theological insights and prayer. Patient repsonded well and showed signs of an elevated mood.
--- NOTE | 2023-09-17 12:28 | NUR ---
YOLANDA ORDER FROM DR MCCARTHY FOR ST, OT AND PT. ORDERS ENTERED INTO [employer].
[2023-09-17] MEDS ORDERED: FAMO20 PO (15:25)
[2023-09-17] MEDS ORDERED: ASPI81CH PO (15:25)
[2023-09-17 16:14] VITALS: BP 152/66
--- NOTE | 2023-09-17 20:07 | NUR ---
DISCHARGE MS DELGADO WAS DISCHARGED HOME WITH HER DAUGHTER AT 1850HRS. ASSISTED TO THE EXIT VIA WHEELCHAIR. AFIB ON TELEMETRY. NO CALLS FROM HOSPICE LIAISON TODAY. SHE WALKED TO THE BATHROOM WITH WALKER, STIFF GAIT - SHE SAID THAT SHE IS WAITING ON KNEE REPLACEMENT AND HAS SEVERE ARTHRITIS TO HER KNEES. SPEACH IS CLEAR, SHE IS VERY TALKATIVE.
== END 2023-09-17 18:52 | disposition home health service (06) | DRG 65 ==
LOC: ER 15:38 → MEDS 15:39
PROVIDERS: Emergency Medicine; ADMIT Hospitalist
DX: I63.9 Cerebral infarction, unspecified (principal); G45.9 Transient cerebral ischemic attack, unspecified; I50.32 Chronic diastolic (congestive) heart failure; I13.0 Hypertensive heart and chronic kidney disease with heart failure and stage 1 through stage 4 chronic kidney disease, or unspecified chronic kidney disease; Z59.00 Homelessness unspecified; R47.01 Aphasia; R48.2 Apraxia; I48.91 Unspecified atrial fibrillation; E11.22 Type 2 diabetes mellitus with diabetic chronic kidney disease; E78.5 Hyperlipidemia, unspecified; R32 Unspecified urinary incontinence; R15.9 Full incontinence of feces; N18.31 Chronic kidney disease, stage 3a; E11.51 Type 2 diabetes mellitus with diabetic peripheral angiopathy without gangrene; E11.40 Type 2 diabetes mellitus with diabetic neuropathy, unspecified; E87.6 Hypokalemia; J44.9 Chronic obstructive pulmonary disease, unspecified; G47.33 Obstructive sleep apnea (adult) (pediatric); J45.909 Unspecified asthma, uncomplicated; F17.210 Nicotine dependence, cigarettes, uncomplicated; M17.11 Unilateral primary osteoarthritis, right knee; R47.81 Slurred speech; M54.9 Dorsalgia, unspecified; G89.29 Other chronic pain; E89.0 Postprocedural hypothyroidism; Z88.8 Allergy status to other drugs, medicaments and biological substances; Z79.899 Other long term (current) drug therapy; Z79.51 Long term (current) use of inhaled steroids; Z86.73 Personal history of transient ischemic attack (TIA), and cerebral infarction without residual deficits; Z79.01 Long term (current) use of anticoagulants; I25.2 Old myocardial infarction; Z86.718 Personal history of other venous thrombosis and embolism; Z86.711 Personal history of pulmonary embolism; Z98.890 Other specified postprocedural states; Z90.89 Acquired absence of other organs; Z91.148 Patient's other noncompliance with medication regimen for other reason; Z90.710 Acquired absence of both cervix and uterus; Z96.651 Presence of right artificial knee joint
CPT/HCPCS: 36415; 70450; 70551; 80048; 80053; 85025; 85610; 85730; 92610; 93005; 93010; 97110; 97116; 97162; 97165; 97530; 97535; 99285-25; A9270

== ENCOUNTER 2024-02-23 16:22 | Emergency (ER) | payer OTHER ==
[~2024-02-23] VITALS: Ht 162.6 cm; Wt 104.3 kg
[~2024-02-23 16:22] MED LIST changes: +FAMO20 PO
[2024-02-23 16:56] VITALS: BP 124/60
[2024-02-23 20:25] LABS: BASOPHILS ABSOLUTE AUTO 0.04 K/mm3 (0.00-0.23); BASOPHILS PERCENT AUTO 1 % (0-2); EOSINOPHILS ABSOLUTE AUTO 0.15 K/mm3 (0.00-0.68); EOSINOPHILS PERCENT AUTO 2 % (0-6); Hematocrit 44.3 % (33.0-51.0); Hemoglobin 14.7 g/dL (11.5-16.0); IMMATURE GRAN ABSOLUTE AUTO 0.05 K/mm3 (0.00-0.10); IMMATURE GRAN PERCENT AUTO 1 % (0-1); LYMPHOCYTES ABSOLUTE AUTO 0.86 K/mm3 (0.84-5.20); LYMPHOCYTES PERCENT AUTO 12 % (21-46); MONOCYTES ABSOLUTE AUTO 0.59 K/mm3 (0.16-1.47); MONOCYTES PERCENT AUTO 9 % (4-13); Mean Corpuscular HGB 29.9 pg (26.0-34.0); Mean Corpuscular HGB Conc 33.2 g/dL (31.5-36.5); Mean Corpuscular Volume 90 fL (80-100); Mean Platelet Volume 11.1 fL (9.1-12.4); NEUTROPHILS ABSOLUTE AUTO 5.25 K/mm3 (1.96-9.15); NEUTROPHILS PERCENT AUTO 76 % (41-73); Platelet Count 143 K/mm3 (150-400); RDW Coefficient Variation 13.6 % (11.7-14.2); RDW Standard Deviation 44.8 fL (35.1-46.3); Red Blood Cell Count 4.91 M/mm3 (3.80-5.20); White Blood Cell Count 6.94 K/mm3 (4.00-11.30)
[2024-02-23 20:44] LABS: Albumin, Blood 3.9 g/dL (3.4-5.0); Albumin/Globulin Ratio 1.1 (0.8-1.8); Bilirubin, Total 1.6 mg/dL (0.1-1.0); Bun/Creatinine Ratio 18.3 (12.0-20.0); Calcium, Blood 9.4 mg/dL (8.5-10.1); Creatinine, Blood 1.64 mg/dL (0.40-1.00); Globulin, Blood 3.4 g/dL (2.2-4.0); Total Protein, Blood 7.3 g/dL (6.4-8.2)
[2024-02-23] MEDS ORDERED: HYDROcodone 5-APAP 325 TAB PO ONE (21:15)
[2024-02-23] MEDS ORDERED: HYDR1TAB94 PO (21:15)
[2024-02-23] MEDS ORDERED: RX PP HYDROcodone-APAP 1 Prepack/30MLBTL UD ONE (21:15)
== END 2024-02-23 21:44 | disposition home or self-care (01) ==
LOC: ER 16:22
PROVIDERS: Emergency Medicine
DX: M25.552 Pain in left hip (principal); W18.30XA Fall on same level, unspecified, initial encounter; Z88.8 Allergy status to other drugs, medicaments and biological substances; Z79.899 Other long term (current) drug therapy; Z79.82 Long term (current) use of aspirin; E11.22 Type 2 diabetes mellitus with diabetic chronic kidney disease; N18.30 Chronic kidney disease, stage 3 unspecified; I48.91 Unspecified atrial fibrillation; I12.9 Hypertensive chronic kidney disease with stage 1 through stage 4 chronic kidney disease, or unspecified chronic kidney disease; J44.9 Chronic obstructive pulmonary disease, unspecified; G47.33 Obstructive sleep apnea (adult) (pediatric); M19.90 Unspecified osteoarthritis, unspecified site; F17.200 Nicotine dependence, unspecified, uncomplicated
CPT/HCPCS: 71046; 72192; 73502; 80053; 85025; 93005; 93010; 99284-25; A9270

== ENCOUNTER 2024-02-26 11:02 | Emergency (ER) | payer OTHER ==
[~2024-02-26] VITALS: Ht 162.6 cm; Wt 102.1 kg
[~2024-02-26 11:02] MED LIST changes: +HYDR1TAB94 PO
[2024-02-26 12:09] LABS: Hematocrit 42.8 % (33.0-51.0); Hemoglobin 13.7 g/dL (11.5-16.0); Mean Corpuscular HGB 29.7 pg (26.0-34.0); Mean Corpuscular Volume 93 fL (80-100); Mean Platelet Volume 12.4 fL (9.1-12.4); Platelet Count 146 K/mm3 (150-400); RDW Coefficient Variation 13.7 % (11.7-14.2); RDW Standard Deviation 46.6 fL (35.1-46.3); Red Blood Cell Count 4.62 M/mm3 (3.80-5.20); White Blood Cell Count 6.16 K/mm3 (4.00-11.30)
[2024-02-26 12:20] LABS: Albumin, Blood 3.2 g/dL (3.4-5.0); Albumin/Globulin Ratio 1.1 (0.8-1.8); Bilirubin, Total 1.1 mg/dL (0.1-1.0); Bun/Creatinine Ratio 28.5 (12.0-20.0); Creatinine, Blood 1.44 mg/dL (0.40-1.00); Magnesium, Blood 1.6 mg/dL (1.6-2.4); Potassium, Blood 3.9 mmol/L (3.5-5.5); Total Protein, Blood 6.2 g/dL (6.4-8.2)
[2024-02-26 12:37] LABS: BASOPHILS PERCENT MAN 0 % (0-2); EOSINOPHILS ABSOLUTE MAN 0.12 K/mm3 (0.00-0.68); EOSINOPHILS PERCENT MAN 2 % (0-6); LYMPHOCYTES PERCENT MAN 26 % (21-46); MONOCYTES ABSOLUTE MAN 0.24 K/mm3 (0.16-1.47); MONOCYTES PERCENT MAN 4 % (4-13); NEUTROPHILS ABSOLUTE MAN 4.18 K/mm3 (1.96-9.15); SEG NEUTROPHILS PERCENT MAN 68 % (41-73); TOTAL CELLS COUNTED 100
[2024-02-26 12:44] LABS: Influenza A, PCR NEGATIVE (NEGATIVE); Influenza B, PCR NEGATIVE (NEGATIVE); Resp Syncytial Virus, PCR NEGATIVE (NEGATIVE); SARS-Cov-2 (COVID-19) PCR, MMC NEGATIVE (NEGATIVE)
[2024-02-26 18:00] VITALS: BP 128/93
== END 2024-02-26 18:30 | disposition home or self-care (01) ==
LOC: ER 11:02
PROVIDERS: Emergency Medicine
DX: R07.9 Chest pain, unspecified (principal); R06.02 Shortness of breath; E11.22 Type 2 diabetes mellitus with diabetic chronic kidney disease; I48.91 Unspecified atrial fibrillation; N18.30 Chronic kidney disease, stage 3 unspecified; I12.9 Hypertensive chronic kidney disease with stage 1 through stage 4 chronic kidney disease, or unspecified chronic kidney disease; J44.9 Chronic obstructive pulmonary disease, unspecified; G47.33 Obstructive sleep apnea (adult) (pediatric); M19.90 Unspecified osteoarthritis, unspecified site; F17.210 Nicotine dependence, cigarettes, uncomplicated
CPT/HCPCS: 0241U; 71046; 80053; 83735; 83880; 84484; 85025; 93005; 93010; 99285-25

== ENCOUNTER 2025-02-25 15:51 | Emergency (ER) | payer OTHER ==
[~2025-02-25] VITALS: Ht 162.6 cm; Wt 108.9 kg
[2025-02-25 15:56] VITALS: BP 140/81
== END 2025-02-25 16:00 | disposition home or self-care (01) ==
LOC: ER 15:51
DX: I12.9 Hypertensive chronic kidney disease with stage 1 through stage 4 chronic kidney disease, or unspecified chronic kidney disease (principal); N18.30 Chronic kidney disease, stage 3 unspecified; J44.9 Chronic obstructive pulmonary disease, unspecified; G47.33 Obstructive sleep apnea (adult) (pediatric); M19.90 Unspecified osteoarthritis, unspecified site; I25.2 Old myocardial infarction; I48.91 Unspecified atrial fibrillation; E11.22 Type 2 diabetes mellitus with diabetic chronic kidney disease; Z79.82 Long term (current) use of aspirin; Z79.899 Other long term (current) drug therapy
CPT/HCPCS: 99282

== ENCOUNTER 2025-02-28 17:39 | Emergency (ER) | payer OTHER ==
[~2025-02-28] VITALS: Ht 170.2 cm; Wt 113.4 kg
[2025-02-28] MEDS ORDERED: Morphine Sulfate 4 MG/1 ML Injection IV ONE (17:45)
[2025-02-28] MEDS ORDERED: Ondansetron HCl 2 MG / ML 2ML Vial IV ONE (17:45)
[2025-02-28 18:33] LABS: BASOPHILS ABSOLUTE AUTO 0.07 K/mm3 (0.00-0.23); BASOPHILS PERCENT AUTO 1 % (0-2); EOSINOPHILS ABSOLUTE AUTO 0.04 K/mm3 (0.00-0.68); EOSINOPHILS PERCENT AUTO 1 % (0-6); Hematocrit 41.9 % (33.0-51.0); IMMATURE GRAN ABSOLUTE AUTO 0.11 K/mm3 (0.00-0.10); IMMATURE GRAN PERCENT AUTO 1 % (0-1); LYMPHOCYTES ABSOLUTE AUTO 2.19 K/mm3 (0.84-5.20); LYMPHOCYTES PERCENT AUTO 29 % (21-46); MONOCYTES ABSOLUTE AUTO 0.45 K/mm3 (0.16-1.47); MONOCYTES PERCENT AUTO 6 % (4-13); Mean Corpuscular HGB 30.3 pg (26.0-34.0); Mean Corpuscular HGB Conc 33.4 g/dL (31.5-36.5); Mean Corpuscular Volume 91 fL (80-100); Mean Platelet Volume 11.3 fL (9.1-12.4); NEUTROPHILS ABSOLUTE AUTO 4.78 K/mm3 (1.96-9.15); NEUTROPHILS PERCENT AUTO 63 % (41-73); Platelet Count 161 K/mm3 (150-400); RDW Standard Deviation 43.7 fL (35.1-46.3); Red Blood Cell Count 4.62 M/mm3 (3.80-5.20); White Blood Cell Count 7.64 K/mm3 (4.00-11.30)
[2025-02-28] MEDS ORDERED: HYDROmorphone HCl/Pf 1MG SYR IV ONE ×2 (18:40→19:45)
[2025-02-28 18:44] LABS: Albumin, Blood 4.2 g/dL (3.4-5.0); Albumin/Globulin Ratio 1.4 (0.8-1.8); Bilirubin, Total 1.6 mg/dL (0.1-1.0); Bun/Creatinine Ratio 18.6 (12.0-20.0); Calcium, Blood 10.2 mg/dL (8.5-10.1); Creatinine, Blood 1.29 mg/dL (0.40-1.00); Globulin, Blood 3.1 g/dL (2.2-4.0); Potassium, Blood 3.9 mmol/L (3.5-5.5); Total Protein, Blood 7.3 g/dL (6.4-8.2)
[2025-02-28 18:45] LABS: International Normalized Ratio 1.09; Prothrombin Time Results 11.6 Sec (9.7-11.5)
[2025-02-28] MEDS ORDERED: Dose Adjust by Pharmacy XX STA (19:26)
[2025-02-28] MEDS ORDERED: Heparin Sodium 5000 Units/ML 1ML MDV IV ONE (19:30)
[2025-02-28] MEDS ORDERED: Heparin Sodium,Porcine/0.5 NS 500 ML IV SCH (19:30)
[2025-02-28 20:15] VITALS: BP 214/110
== END 2025-02-28 21:10 | disposition short-term general hospital (02) ==
LOC: ER 17:39
PROVIDERS: Emergency Medicine
DX: I77.9 Disorder of arteries and arterioles, unspecified (principal); I25.2 Old myocardial infarction; E11.22 Type 2 diabetes mellitus with diabetic chronic kidney disease; N18.30 Chronic kidney disease, stage 3 unspecified; I12.9 Hypertensive chronic kidney disease with stage 1 through stage 4 chronic kidney disease, or unspecified chronic kidney disease; J44.9 Chronic obstructive pulmonary disease, unspecified; F17.200 Nicotine dependence, unspecified, uncomplicated; Z79.02 Long term (current) use of antithrombotics/antiplatelets; Z79.82 Long term (current) use of aspirin; Z79.899 Other long term (current) drug therapy; Z86.73 Personal history of transient ischemic attack (TIA), and cerebral infarction without residual deficits
CPT/HCPCS: 80053; 85025; 85520; 85610; 93005; 93010; 93931; 96365-59; 96375-59; 96376-59; 99285-25; J1171; J1644; J2270; J2405

== ENCOUNTER 2025-05-11 18:15 | Emergency (ER) | payer OTHER ==
[~2025-05-11] VITALS: Ht 162.6 cm; Wt 95.2 kg
[2025-05-11 19:27] LABS: BASOPHILS ABSOLUTE AUTO 0.07 K/mm3 (0.00-0.23); BASOPHILS PERCENT AUTO 1 % (0-2); EOSINOPHILS ABSOLUTE AUTO 0.14 K/mm3 (0.00-0.68); EOSINOPHILS PERCENT AUTO 2 % (0-6); Hematocrit 28.6 % (33.0-51.0); Hemoglobin 8.8 g/dL (11.5-16.0); IMMATURE GRAN ABSOLUTE AUTO 0.06 K/mm3 (0.00-0.10); IMMATURE GRAN PERCENT AUTO 1 % (0-1); LYMPHOCYTES ABSOLUTE AUTO 1.50 K/mm3 (0.84-5.20); LYMPHOCYTES PERCENT AUTO 19 % (21-46); MONOCYTES ABSOLUTE AUTO 0.49 K/mm3 (0.16-1.47); MONOCYTES PERCENT AUTO 6 % (4-13); Mean Corpuscular HGB Conc 30.8 g/dL (31.5-36.5); Mean Corpuscular Volume 89 fL (80-100); NEUTROPHILS ABSOLUTE AUTO 5.71 K/mm3 (1.96-9.15); NEUTROPHILS PERCENT AUTO 72 % (41-73); NRBC ABSOLUTE 0.00 K/mm3 (0.00-0.02); NRBC Auto 0.0 /100 WBC (0.0-0.2); Platelet Count 212 K/mm3 (150-400); RDW Coefficient Variation 14.6 % (11.7-14.2); RDW Standard Deviation 48.3 fL (35.1-46.3)
[2025-05-11 19:33] LABS: Anion Gap 7.0 mmol/L (3-11); Blood Urea Nitrogen 17.0 mg/dL (8-24); CO2, Blood 26.0 mmol/L (21-32); Calcium, Blood 9.0 mg/dL (8.5-10.1); Chloride, Blood 113.0 mmol/L (98-108); Creatinine, Blood 1.09 mg/dL (0.40-1.00); Glucose, Blood 108.0 mg/dL (70-99); Potassium, Blood 4.0 mmol/L (3.5-5.5); Sodium, Blood 142.0 mmol/L (136-145)
[2025-05-11 19:35] VITALS: BP 187/92
[2025-05-11] MEDS ORDERED: DOXY100 PO (19:43)
== END 2025-05-11 20:07 | disposition home or self-care (01) ==
LOC: ER 18:15
PROVIDERS: Emergency Medicine
DX: T81.49XA Infection following a procedure, other surgical site, initial encounter (principal); L03.114 Cellulitis of left upper limb; I25.10 Atherosclerotic heart disease of native coronary artery without angina pectoris; I25.2 Old myocardial infarction; E11.22 Type 2 diabetes mellitus with diabetic chronic kidney disease; I12.9 Hypertensive chronic kidney disease with stage 1 through stage 4 chronic kidney disease, or unspecified chronic kidney disease; N18.30 Chronic kidney disease, stage 3 unspecified; I48.91 Unspecified atrial fibrillation; J44.9 Chronic obstructive pulmonary disease, unspecified; G47.33 Obstructive sleep apnea (adult) (pediatric); E78.5 Hyperlipidemia, unspecified; F17.210 Nicotine dependence, cigarettes, uncomplicated; Z86.73 Personal history of transient ischemic attack (TIA), and cerebral infarction without residual deficits; Z86.718 Personal history of other venous thrombosis and embolism; Z79.82 Long term (current) use of aspirin; Z79.01 Long term (current) use of anticoagulants; Z79.899 Other long term (current) drug therapy
CPT/HCPCS: 73090; 80048; 85025; 99283-25; A9270

== ENCOUNTER → 2025-05-11 | Outpatient (CLI) | payer OTHER ==
[~2025-05-11] MED LIST changes: +ALBU2.5V5 INH; +B-121000 MC3 PO; +BISA10S PR; +CARV6.25 PO; +CEPH500 PO; +HYDCOR2.5C TOP; +LACT10SY PO; +LIPITOR80 MG PO; +Lisinopril2.5 MG PO; +MASOPHEN325 M3 PO; +MELA3 PO; +MIRALAX1714 PO; +ONDA4 PO; +OXYC5 PO; +PROBIOTIC1 EA13 PO; +PROTONIX4010 PO; +Promod946 ML PO; +XARELTO15 M1 PO
== END ==
LOC: LAB SHORT 17:40 → LAB 17:40
DX: L02.414 Cutaneous abscess of left upper limb (principal)
CPT/HCPCS: 87070; 87075; 87077; 87147; 87186; 87205

== ENCOUNTER 2025-08-07 01:29 | Emergency (ER) | payer OTHER ==
[~2025-08-07] VITALS: Ht 157.5 cm; Wt 90.7 kg
[2025-08-07 01:39] VITALS: BP 149/87
[2025-08-07 01:56] LABS: BASOPHILS ABSOLUTE AUTO 0.05 K/mm3 (0.00-0.23); BASOPHILS PERCENT AUTO 1 % (0-2); EOSINOPHILS ABSOLUTE AUTO 0.06 K/mm3 (0.00-0.68); EOSINOPHILS PERCENT AUTO 1 % (0-6); Hematocrit 27.1 % (33.0-51.0); Hemoglobin 8.6 g/dL (11.5-16.0); IMMATURE GRAN ABSOLUTE AUTO 0.12 K/mm3 (0.00-0.10); IMMATURE GRAN PERCENT AUTO 1 % (0-1); LYMPHOCYTES ABSOLUTE AUTO 1.14 K/mm3 (0.84-5.20); LYMPHOCYTES PERCENT AUTO 11 % (21-46); MONOCYTES ABSOLUTE AUTO 0.50 K/mm3 (0.16-1.47); MONOCYTES PERCENT AUTO 5 % (4-13); Mean Corpuscular HGB Conc 31.7 g/dL (31.5-36.5); Mean Corpuscular Volume 80 fL (80-100); NEUTROPHILS ABSOLUTE AUTO 8.55 K/mm3 (1.96-9.15); NEUTROPHILS PERCENT AUTO 82 % (41-73); NRBC ABSOLUTE 0.00 K/mm3 (0.00-0.02); NRBC Auto 0.0 /100 WBC (0.0-0.2); Platelet Count 181 K/mm3 (150-400); RDW Coefficient Variation 18.6 % (11.7-14.2); RDW Standard Deviation 53.8 fL (35.1-46.3)
[2025-08-07 02:13] LABS: Alanine Aminotransfer (ALT/SGP 17.0 U/L (12-78); Albumin, Blood 3.1 g/dL (3.4-5.0); Albumin/Globulin Ratio 0.9 (0.8-1.8); Anion Gap 12.0 mmol/L (3-11); Aspartate Aminotrans (AST/SGOT 22.0 U/L (12-37); Bilirubin, Total 2.5 mg/dL (0.1-1.0); Blood Urea Nitrogen 21.0 mg/dL (8-24); CO2, Blood 25.0 mmol/L (21-32); Calcium, Blood 8.8 mg/dL (8.5-10.1); Chloride, Blood 105.0 mmol/L (98-108); Creatinine, Blood 0.94 mg/dL (0.40-1.00); Globulin, Blood 3.5 g/dL (2.2-4.0); Glucose, Blood 168.0 mg/dL (70-99); Potassium, Blood 3.9 mmol/L (3.5-5.5); Sodium, Blood 138.0 mmol/L (136-145); Total Protein, Blood 6.6 g/dL (6.4-8.2)
[2025-08-07] MEDS ORDERED: Percocet 5-3251 EACH PO (03:25)
== END 2025-08-07 04:02 | disposition home or self-care (01) ==
LOC: ER 01:29
PROVIDERS: Emergency Medicine
DX: M25.561 Pain in right knee (principal); I25.10 Atherosclerotic heart disease of native coronary artery without angina pectoris; I25.2 Old myocardial infarction; I48.91 Unspecified atrial fibrillation; E11.22 Type 2 diabetes mellitus with diabetic chronic kidney disease; I12.9 Hypertensive chronic kidney disease with stage 1 through stage 4 chronic kidney disease, or unspecified chronic kidney disease; N18.30 Chronic kidney disease, stage 3 unspecified; J44.9 Chronic obstructive pulmonary disease, unspecified; G47.33 Obstructive sleep apnea (adult) (pediatric); E78.5 Hyperlipidemia, unspecified; F17.210 Nicotine dependence, cigarettes, uncomplicated; Z96.651 Presence of right artificial knee joint; Z91.81 History of falling; Z86.73 Personal history of transient ischemic attack (TIA), and cerebral infarction without residual deficits; Z79.82 Long term (current) use of aspirin; Z79.01 Long term (current) use of anticoagulants; Z79.899 Other long term (current) drug therapy
CPT/HCPCS: 73502; 73560-RT; 80053; 82550; 85025; 99283-25

== ENCOUNTER 2025-08-10 18:45 | Emergency (ER) | payer OTHER ==
[~2025-08-10] VITALS: Ht 162.6 cm; Wt 90.7 kg
[~2025-08-10 18:45] MED LIST changes: +Percocet 5-3251 EACH PO
[2025-08-10 19:32] VITALS: BP 122/62
== END 2025-08-10 21:43 | disposition home or self-care (01) ==
LOC: ER 18:45
DX: M79.632 Pain in left forearm (principal); I25.10 Atherosclerotic heart disease of native coronary artery without angina pectoris; I25.2 Old myocardial infarction; I12.9 Hypertensive chronic kidney disease with stage 1 through stage 4 chronic kidney disease, or unspecified chronic kidney disease; E11.22 Type 2 diabetes mellitus with diabetic chronic kidney disease; N18.30 Chronic kidney disease, stage 3 unspecified; I48.91 Unspecified atrial fibrillation; J44.9 Chronic obstructive pulmonary disease, unspecified; G47.33 Obstructive sleep apnea (adult) (pediatric); E78.5 Hyperlipidemia, unspecified; F17.210 Nicotine dependence, cigarettes, uncomplicated; Z91.81 History of falling; Z79.82 Long term (current) use of aspirin; Z79.01 Long term (current) use of anticoagulants; Z79.899 Other long term (current) drug therapy
CPT/HCPCS: 73090; 99283-25

== ENCOUNTER 2025-08-11 10:11 | Emergency (ER) | payer OTHER ==
[~2025-08-11] VITALS: Ht 162.6 cm; Wt 91.6 kg
[2025-08-11] MEDS ORDERED: NS 1,000 ML IV SCH (10:45)
[2025-08-11 11:31] LABS: BASOPHILS ABSOLUTE AUTO 0.03 K/mm3 (0.00-0.23); BASOPHILS PERCENT AUTO 0 % (0-2); EOSINOPHILS ABSOLUTE AUTO 0.10 K/mm3 (0.00-0.68); EOSINOPHILS PERCENT AUTO 1 % (0-6); Hematocrit 25.4 % (33.0-51.0); Hemoglobin 8.0 g/dL (11.5-16.0); IMMATURE GRAN ABSOLUTE AUTO 0.04 K/mm3 (0.00-0.10); IMMATURE GRAN PERCENT AUTO 1 % (0-1); LYMPHOCYTES ABSOLUTE AUTO 1.05 K/mm3 (0.84-5.20); LYMPHOCYTES PERCENT AUTO 15 % (21-46); MONOCYTES ABSOLUTE AUTO 0.56 K/mm3 (0.16-1.47); MONOCYTES PERCENT AUTO 8 % (4-13); Mean Corpuscular HGB Conc 31.5 g/dL (31.5-36.5); Mean Corpuscular Volume 81 fL (80-100); NEUTROPHILS ABSOLUTE AUTO 5.14 K/mm3 (1.96-9.15); NEUTROPHILS PERCENT AUTO 74 % (41-73); NRBC ABSOLUTE 0.00 K/mm3 (0.00-0.02); NRBC Auto 0.0 /100 WBC (0.0-0.2); Platelet Count 198 K/mm3 (150-400); RDW Coefficient Variation 17.9 % (11.7-14.2); RDW Standard Deviation 53.1 fL (35.1-46.3)
[2025-08-11 12:02] LABS: Prothrombin Time Results 12.5 Sec (9.7-11.5)
[2025-08-11 12:04] LABS: Alanine Aminotransfer (ALT/SGP 20.0 U/L (12-78); Albumin, Blood 3.3 g/dL (3.4-5.0); Albumin/Globulin Ratio 1.0 (0.8-1.8); Anion Gap 10.0 mmol/L (3-11); Aspartate Aminotrans (AST/SGOT 19.0 U/L (12-37); Bilirubin, Total 1.1 mg/dL (0.1-1.0); Blood Urea Nitrogen 70.0 mg/dL (8-24); CO2, Blood 25.0 mmol/L (21-32); Calcium, Blood 9.4 mg/dL (8.5-10.1); Chloride, Blood 107.0 mmol/L (98-108); Creatinine, Blood 1.42 mg/dL (0.40-1.00); Globulin, Blood 3.2 g/dL (2.2-4.0); Glucose, Blood 165.0 mg/dL (70-99); Potassium, Blood 4.5 mmol/L (3.5-5.5); Sodium, Blood 137.0 mmol/L (136-145); Total Protein, Blood 6.5 g/dL (6.4-8.2)
[2025-08-11 13:54] LABS: Source, Urine Condom Cath
[2025-08-11 14:04] LABS: Bilirubin, Urine Neg (Neg); Color, Urine Yellow (P-Yellow); Glucose Qualitative, Urine Neg (Neg); Ketones, Urine Neg (Neg); Leukocyte Esterase, Urine Neg (Neg); Protein, Urine Neg (Neg); Specific Gravity, Urine 1.020 (1.003-1.022); Urobilinogen, Urine NORM (Normal)
[2025-08-11 14:13] LABS: White Blood Cells, Urine 0-2 /hpf (0-5)
[2025-08-11] MEDS ORDERED: OxyCODONE 5 mg/Acetamin 325 mg TABLET PO PRN (16:00)
[2025-08-12 20:26] VITALS: BP 105/50
== END 2025-08-12 21:37 | disposition home or self-care (01) ==
LOC: ER 10:11
PROVIDERS: Emergency Medicine
DX: S30.81AA Abrasion of flank, initial encounter (principal); R53.1 Weakness; E86.0 Dehydration; I48.20 Chronic atrial fibrillation, unspecified; G89.29 Other chronic pain; W01.0XXA Fall on same level from slipping, tripping and stumbling without subsequent striking against object, initial encounter; F17.210 Nicotine dependence, cigarettes, uncomplicated; Z86.73 Personal history of transient ischemic attack (TIA), and cerebral infarction without residual deficits; I12.9 Hypertensive chronic kidney disease with stage 1 through stage 4 chronic kidney disease, or unspecified chronic kidney disease; E11.22 Type 2 diabetes mellitus with diabetic chronic kidney disease; N18.30 Chronic kidney disease, stage 3 unspecified; M19.90 Unspecified osteoarthritis, unspecified site; G47.33 Obstructive sleep apnea (adult) (pediatric); J44.9 Chronic obstructive pulmonary disease, unspecified; Z79.899 Other long term (current) drug therapy; Z79.82 Long term (current) use of aspirin
CPT/HCPCS: 80053; 81001; 85025; 85610; 93005; 93010; 97162; 97530; 99285-25; A6590; A9270; J7030; P9612

== ENCOUNTER 2025-08-15 06:56 | Emergency (ER) | payer OTHER ==
[~2025-08-15] VITALS: Ht 162.6 cm; Wt 90.7 kg
[2025-08-15 08:11] LABS: BASOPHILS ABSOLUTE AUTO 0.07 K/mm3 (0.00-0.23); BASOPHILS PERCENT AUTO 1 % (0-2); EOSINOPHILS ABSOLUTE AUTO 0.09 K/mm3 (0.00-0.68); EOSINOPHILS PERCENT AUTO 1 % (0-6); Hematocrit 27.5 % (33.0-51.0); Hemoglobin 8.3 g/dL (11.5-16.0); IMMATURE GRAN ABSOLUTE AUTO 0.07 K/mm3 (0.00-0.10); IMMATURE GRAN PERCENT AUTO 1 % (0-1); LYMPHOCYTES ABSOLUTE AUTO 0.84 K/mm3 (0.84-5.20); LYMPHOCYTES PERCENT AUTO 9 % (21-46); MONOCYTES ABSOLUTE AUTO 0.67 K/mm3 (0.16-1.47); MONOCYTES PERCENT AUTO 7 % (4-13); Mean Corpuscular HGB Conc 30.2 g/dL (31.5-36.5); Mean Corpuscular Volume 83 fL (80-100); NEUTROPHILS ABSOLUTE AUTO 8.09 K/mm3 (1.96-9.15); NEUTROPHILS PERCENT AUTO 82 % (41-73); NRBC ABSOLUTE 0.00 K/mm3 (0.00-0.02); NRBC Auto 0.0 /100 WBC (0.0-0.2); Platelet Count 285 K/mm3 (150-400); RDW Coefficient Variation 18.0 % (11.7-14.2); RDW Standard Deviation 54.5 fL (35.1-46.3)
[2025-08-15 08:27] LABS: Anion Gap 12.0 mmol/L (3-11); Blood Urea Nitrogen 64.0 mg/dL (8-24); CO2, Blood 21.0 mmol/L (21-32); Calcium, Blood 10.0 mg/dL (8.5-10.1); Chloride, Blood 107.0 mmol/L (98-108); Creatinine, Blood 1.61 mg/dL (0.40-1.00); Glucose, Blood 214.0 mg/dL (70-99); Potassium, Blood 5.2 mmol/L (3.5-5.5); Sodium, Blood 135.0 mmol/L (136-145)
[2025-08-15] MEDS ORDERED: Morphine Sulfate 4 MG/1 ML Injection IV ONE (13:20)
[2025-08-15] MEDS ORDERED: Morphine Sulfate 4 MG/1 ML Injection IV PRN (13:25)
[2025-08-15] MEDS ORDERED: NS 1,000 ML IV SCH (15:15)
[2025-08-15] MEDS ORDERED: HYDROmorphone HCl/Pf 1MG SYR IV ONE (19:20)
[2025-08-15 20:41] LABS: Source, Urine Clean Catch
[2025-08-15 20:43] LABS: Bilirubin, Urine Neg (Neg); Glucose Qualitative, Urine Neg (Neg); Ketones, Urine Neg (Neg); Leukocyte Esterase, Urine 1+ (Neg); Protein, Urine Neg (Neg); Specific Gravity, Urine 1.020 (1.003-1.022); Urobilinogen, Urine NORM (Normal)
[2025-08-15 20:53] LABS: Color, Urine Yellow (P-Yellow)
[2025-08-15 20:54] LABS: Red Blood Cells, Urine 0-2 /hpf (0-2)
[2025-08-15 22:15] VITALS: BP 102/46
--- NOTE | 2025-08-16 13:56 | NUR ---
RCV'D CALL FROM DTR INQUIRING WHEN/WHERE PT WAS TRANSFERED TO. DTR WAS NOTIFIED EARLIER IN THE DAY THAT THE PT WAS GOING TO BE SENT TO A HIGHER LEVEL OF CARE. ADDT'L DTR REPORTS PT HAS INCREASED CONFUSION AND WAS HALLUCINATING WHILE IN THE ERMERGENCY ROOM YESTERDAY 08/16/25. DTR IS CONCERNED ABOUT WHO WOULD BE CONSENTING TO SURGERY WITHOUT HER THERE. LEFT MS FOR PATIENT ADVOCATE FOR FOLLOW UP.
== END 2025-08-15 22:34 | disposition short-term general hospital (02) ==
LOC: ER 06:56
PROVIDERS: Student in an Organized Health Care Education/Training Program
DX: S72.351A Displaced comminuted fracture of shaft of right femur, initial encounter for closed fracture (principal); I48.91 Unspecified atrial fibrillation; I25.10 Atherosclerotic heart disease of native coronary artery without angina pectoris; I25.2 Old myocardial infarction; E11.22 Type 2 diabetes mellitus with diabetic chronic kidney disease; I12.9 Hypertensive chronic kidney disease with stage 1 through stage 4 chronic kidney disease, or unspecified chronic kidney disease; N18.30 Chronic kidney disease, stage 3 unspecified; J44.9 Chronic obstructive pulmonary disease, unspecified; G47.33 Obstructive sleep apnea (adult) (pediatric); E78.5 Hyperlipidemia, unspecified; F17.210 Nicotine dependence, cigarettes, uncomplicated; Z96.651 Presence of right artificial knee joint; Z86.73 Personal history of transient ischemic attack (TIA), and cerebral infarction without residual deficits; Z79.82 Long term (current) use of aspirin; Z79.01 Long term (current) use of anticoagulants; Z79.899 Other long term (current) drug therapy; Z65.8 Other specified problems related to psychosocial circumstances; Z58.89 Other problems related to physical environment; W05.0XXA Fall from non-moving wheelchair, initial encounter
CPT/HCPCS: 29505; 70450; 73562-RT; 80048; 81001; 85025; 93005; 93010; 96361; 96374-59; 96375-59; 99285-25; A6590; A9270; J1171; J2270; J7030